=== PATIENT | female | born 1995 | race Caucasian/White ===

== ENCOUNTER 2022-02-22 08:40 | Emergency (ER) | payer OTHER, SELFPAY ==
--- NOTE | ~2022-02-22 | XR_ITS ---
XR chest 1V portable DATE: 02/22/2022 09:50 INDICATION: Chest pain, shortness of breath. Anxiety attack today. TECHNIQUE: Portable upright AP chest on 02/14/2022 at 0946 hours COMPARISON: None FINDINGS: Normal heart size. No hilar or mediastinal enlargement. No pulmonary infiltrate or consolid ation, pleural effusion or pulmonary vascular congestion or pneumothorax. There is thoracic and lumbar scoliosis. IMPRESSION: No active cardiopulmonary disease Reviewed, dictated and finalized at location B.
[2022-02-22 08:39] VITALS: BP 114/81; PULSE 82; RESP 21; TEMP 36.8; O2SAT 100
--- NOTE | 2022-02-22 08:46 | ECG_ITS ---
Measurements Intervals [place] Rate: 70 P: 49 GA: 115 QRS: 40 QRSD: 94 T: 53 QT: 402 QTc: 436 Interpretive Statements SINUS RHYTHM WITH SINUS ARRHYTHMIA WITH SHORT GA INTERVAL RIGHT VENTRICULAR CONDUCTION DELAY NO PREVIOUS ECG AVAILABLE FOR COMPARISON Electronically Signed On 02-22-2022 10:56:52 CDT by Sam Bolton M.D.
--- NOTE | 2022-02-22 08:54 | ED.ANXIETY ---
HPI - Anxiety General Chief Complaint: Anxiety <Rosalina Crain PA-C - Last Filed: 02/22/22 13:18> Stated Complaint: anxiety attack <Rosalina Crain PA-C - Last Filed: 02/22/22 13:18> Time Seen by Provider: 02/22/22 08:53 <Rosalina Crain PA-C - Last Filed: 02/22/22 13:18> History of Present Illness HPI narrative: Patient is a 26-year-old female with a history of anxiety and panic attacks here for evaluation of several symptoms which she attributes to panic attack earlier today. She states that she was going up a flight of stairs when she became short of breath, developed a tightness in the center of her chest, felt incredibly anxious, and felt like she was losing control. She states that this is her classic panic attack symptom. She is still is feeling some tightness in the center of her chest and also feels very anxious. She has seen a psychiatrist in the past for this but has not seen one in several years and is not currently on any medications. She did also have a panic attack about 2 months ago with very similar symptoms. Denies SI/HI, fevers, chills, preceding illness, leg swelling, history of blood clots, use of oral contraceptives, cough, hemoptysis, malaise, headaches. Of note, patient uses IV fentanyl, last used last week. <Rosalina Crain PA-C - Last Filed: 02/22/22 13:18> Related Data Allergies/Adverse Reactions: Allergies Allergy/AdvReac Type Severity Reaction Status Date / Time No Known Allergies Allergy Verified 02/22/22 08:45 <Rosalina Crain PA-C - Last Filed: 02/22/22 13:18> Review of Systems Review of Systems: Gen: Denies fevers or chills Eyes: Denies eye pain or visual change ENT: Denies congestion Respiratory: Reports shortness of breath. denies Cough CV: Reports chest pain and shortness of breath. GI: Denies abdominal pain nausea, emesis or diarrhea denies burning, urgency, frequency or hematuria Musculoskeletal: Denies back pain or muscle pain Neuro: Denies numbness, tingling, weakness or focal weakness Psych: Reports anxiety. Skin: Denies rash Except as documented, all other systems reviewed and negative <CHERRY Hudson Last Filed: 02/22/22 13:18> [facility] Social History Social History: Social History Substance use type: opiates <CHERRY Hudson Last Filed: 02/22/22 13:18> Exam Narrative: APPEARANCE: Tearful, anxious appearing. Head: Normocephalic and atraumatic. EYES: PERRLA/EOMI, conjunctivae clear NOSE: No nasal drainage EARS: External ear normal in appearance THROAT: Oropharynx is clear. Mucous membranes are moist. NECK: Supple. No adenopathy, no masses. RESPIRATORY: Airway patent, respirations nonlabored. Clear to auscultation bilaterally, no rales, rhonchi, wheezing. CARDIOVASCULAR: Regular rate and rhythm without murmurs, rubs, or gallops. ABDOMINAL: Normoactive bowel sounds. Soft, nontender, nondistended. No rebound tenderness or guarding. MUSCULOSKELETAL: Extremities are warm and well-perfused. Moves all extremities well. No edema. NEURO: Normal speech. No focal neurologic deficits. SKIN: Skin is warm and dry. No rashes. PSYCHIATRIC:Anxious mood. <CHERRY Hudson Last Filed: 02/22/22 13:18> Course Vital Signs Vital signs: Vital Signs Temperature 98.3 F 02/22/22 08:39 Pulse Rate 82 02/22/22 08:39 Respiratory Rate 21 H 02/22/22 08:39 Blood Pressure 114/81 02/22/22 08:39 Pulse Oximetry 100 02/22/22 08:39 Oxygen Delivery Room Air 02/22/22 08:39 Temperature 98.3 F 02/22/22 08:39 Pulse Rate 83 02/22/22 11:13 Respiratory Rate 20 02/22/22 11:13 Blood Pressure 116/72 02/22/22 11:13 Pulse Oximetry 100 02/22/22 11:13 Oxygen Delivery Room Air 02/22/22 08:39 <CHERRY Hudson Last Filed: 02/22/22 13:18> Vital Signs Temperature 98.3 F 02/22/22 08:39 Pulse Rate 82 02/22/22 08:39 Respirat
[2022-02-22] MEDS: LORazepam (*CRX) 0.5 MG TABLET PO ×2 (09:06→10:36)
[2022-02-22 09:16] LABS: Basophils Percent Auto 0.3 % (0.2-1.2); Eosinophils Percent Auto 0.2 % (0-4.4); Hematocrit 44.4 % (37.0-47.0); Hemoglobin 13.5 g/dL (12.0-15.0); Immature Granulocyte Absolute 0.02 K/mm3 (0.00-0.031); Immature Granulocyte Percent A 0.2 % (0-0.5); Lymphocytes Absolute Auto 1.72 K/mm3 (0.9-3.2); Lymphocytes Percent Auto 19.6 % (18.3-44.2); Mean Corpuscular HGB Conc 30.4 g/dl (32-36); Mean Corpuscular Volume 92.1 fl (80-100); Monocytes Absolute Auto 0.4 K/mm3 (0.1-0.6); Monocytes Percent Auto 4.8 % (2.6-8.5); Neutrophils Absolute Auto 6.6 K/mm3 (1.3-6.7); Neutrophils Percent Auto 74.9 % (45.5-73.1); Platelet Count Result 455 k/mm3 (150-375); Red Blood Count 4.82 M/mm3 (4.2-5.4); Red Cell Distribution Width 15.3 % (11.5-14.5); White Blood Count 8.8 K/mm3 (4.5-10.0)
[2022-02-22 09:19] LABS: Appearance Urine Cloudy (Clear); Bilirubin Urine 1+ (Negative); Color Urine Yellow (Yellow); Glucose Urine UA Negative (Negative); Ketones Urine Trace mg/dL (Negative); Leukocyte Esterase Ur 1+ LEU/UL (Negative); Nitrate Urine Negative (Negative); Protein Urine 1+ mg/dL (Negative)
[2022-02-22 09:20] LABS: Add Urine Microscopic? YES; Blood Urine Trace-Intact (Negative)
[2022-02-22 09:23] LABS: Bacteria Urine Trace /hpf; Mucus Urine Heavy /lpf; Squamous Epithelial Cell Urine Many /hpf (Few); WBC Urine 31-50 /hpf
[2022-02-22 09:33] LABS: Troponin I < 0.012 ng/mL (0.000-0.034)
[2022-02-22 09:38] LABS: Alanine Aminotransferase 29 U/L (6-35); Albumin Level 4.7 g/dL (3.5-5.1); Alkaline Phosphatase 95 U/L (38-126); Anion Gap 9 mmol/L (8-16); Aspartate Amino Transferase 32 U/L (14-36); Bilirubin,Total 0.7 mg/dL (0.2-1.3); Blood Urea Nitrogen 14 mg/dL (7-17); Calcium 9.1 mg/dL (8.4-10.2); Carbon Dioxide 24 mmol/L (22-30); Chloride 111 mmol/L (98-107); Estimated CRCL calculation 117 ml/min; Estimated Glomerular Filt Rate > 60; Glucose 98 mg/dL (65-110); Potassium 4.3 mmol/L (3.4-5.0); Sodium 144 mmol/L (137-145)
[2022-02-22 10:09] VITALS: BP 118/73; PULSE 68; RESP 15; O2SAT 98
[2022-02-22 10:24] LABS: Amphetamine Screen Urine Negative (Negative); Barbiturate Screen Urine Negative (Negative); Benzodiazepines Screen Urine Negative (Negative); Cannabinoid Screen Urine Positive (Negative); Cocaine Screen Urine Negative (Negative); Methadone Screen Urine Negative (Negative); Opiate Screen Urine Negative (Negative); Phencyclidine Screen Urine Negative (Negative)
[2022-02-22 11:13] VITALS: BP 116/72; PULSE 83; RESP 20; O2SAT 100
== END 2022-02-22 11:15 | disposition home or self-care (01) ==
PROVIDERS: Emergency Provider Emergency Medicine
DX: F41.9 Anxiety disorder, unspecified (principal); I45.9 Conduction disorder, unspecified
CPT/HCPCS: 36415; 71045; 80053; 80307; 81001; 81025; 84484; 85025; 87077; 87086; 87088; 87186; 93005; 99284; A9270

== ENCOUNTER 2022-04-28 14:18 | Emergency (ER) | payer OTHER, SELFPAY ==
--- NOTE | 2022-04-28 14:36 | PC.NURSE ---
called for triage. no response.
[2022-04-28 14:49] VITALS: BP 128/98; PULSE 105; RESP 16; TEMP 36.9; O2SAT 97
[2022-04-28 16:41] LABS: Appearance Urine Slightly Cloudy (Clear); Bilirubin Urine Negative (Negative); Blood Urine Negative (Negative); Color Urine Yellow (Yellow); Glucose Urine UA Negative (Negative); Ketones Urine Negative (Negative); Leukocyte Esterase Ur Trace LEU/UL (Negative); Nitrate Urine Negative (Negative); Protein Urine Negative (Negative); Specific Grav Ur 1.025 (1.001-1.035); Urobilinogen Urine 0.2 mg/dL (<2.0); pH Urine 6.5 (5.0-9.0)
[2022-04-28 16:41] LABS: Basophils Percent Auto 0.2 % (0.2-1.2); Eosinophils Absolute Auto 0.4 K/mm3 (0-0.3); Eosinophils Percent Auto 7.5 % (0-4.4); Hemoglobin 10.7 g/dL (12.0-15.0); Immature Granulocyte Absolute 0.01 K/mm3 (0.00-0.031); Immature Granulocyte Percent A 0.2 % (0-0.5); Lymphocytes Absolute Auto 1.72 K/mm3 (0.9-3.2); Lymphocytes Percent Auto 32.3 % (18.3-44.2); Mean Corpuscular HGB Conc 31.5 g/dl (32-36); Mean Corpuscular Hemoglobin 28.1 pg (26-34); Mean Corpuscular Volume 89.2 fl (80-100); Mean Platelet Volume 9.3 fl (7.4-10.4); Monocytes Absolute Auto 0.9 K/mm3 (0.1-0.6); Monocytes Percent Auto 16.7 % (2.6-8.5); Neutrophils Absolute Auto 2.3 K/mm3 (1.3-6.7); Neutrophils Percent Auto 43.1 % (45.5-73.1); Platelet Count Result 274 k/mm3 (150-375); Red Blood Count 3.81 M/mm3 (4.2-5.4); White Blood Count 5.3 K/mm3 (4.5-10.0)
[2022-04-28 16:44] LABS: Bacteria Urine Trace /hpf; Calcium Oxalate Crystals Urine Present /hpf; Mucus Urine Few /lpf; Squamous Epithelial Cell Urine Many /hpf (Few); WBC Urine 0-3 /hpf
[2022-04-28 16:47] LABS: Add Urine Microscopic? YES
[2022-04-28 16:52] LABS: Alanine Aminotransferase 91 U/L (6-35); Alkaline Phosphatase 98 U/L (38-126); Anion Gap 3 mmol/L (8-16); Aspartate Amino Transferase 95 U/L (14-36); Bilirubin,Total 0.2 mg/dL (0.2-1.3); Blood Urea Nitrogen 12 mg/dL (7-17); Calcium 8.6 mg/dL (8.4-10.2); Carbon Dioxide 27 mmol/L (22-30); Chloride 102 mmol/L (98-107); Estimated CRCL calculation 117 ml/min; Estimated Glomerular Filt Rate > 60; Glucose 88 mg/dL (65-110); Potassium 3.9 mmol/L (3.4-5.0); Sodium 132 mmol/L (137-145)
--- NOTE | 2022-04-28 18:46 | ED.ABDPAIN ---
HPI - Abdominal Pain General Chief Complaint: Abdominal Pain <Rosalina Mora PA-C - Last Filed: 04/28/22 22:16> Stated Complaint: blood in urine, flank pain <Rosalina Mora PA-C - Last Filed: 04/28/22 22:16> Time Seen by Provider: 04/28/22 18:35 <Rosalina Mora PA-C - Last Filed: 04/28/22 22:16> Source: patient <Rosalina Mora PA-C - Last Filed: 04/28/22 22:16> Mode of arrival: ambulatory <Rosalina Mora PA-C - Last Filed: 04/28/22 22:16> Limitations: no limitations <Rosalina Mora PA-C - Last Filed: 04/28/22 22:16> History of Present Illness HPI narrative: This is a 26 year old female that presents to the ER for urinary problems. Reports she has had several different antibiotics over the last couple of months for a UTI. Reports continued vulvovaginal irritation. Also reports she saw some blood in her urine. Reports she would like tested for STDs. Denies fever, abdominal pain, or dysuria. <Rosalina Mora PA-C - Last Filed: 04/28/22 22:16> Related Data Allergies/Adverse Reactions: Allergies Allergy/AdvReac Type Severity Reaction Status Date / Time ketorolac AdvReac Mild SWELLING Verified 02/06/18 17:11 <Rosalina Mora PA-C - Last Filed: 04/28/22 22:16> Review of Systems Review of Systems: CONSTITUTIONAL: Denies fever GASTROINTESTINAL: Denies abdominal pain, nausea, vomiting GENITOURINARY: Reports hematuria. Denies dysuria <Rosalina Mora PA-C - Last Filed: 04/28/22 22:16> All systems reviewed & are unremarkable except as noted in HPI and below <Rosalina Mora PA-C - Last Filed: 04/28/22 22:16> [facility] Past Medical History Medical History: Medical History (Updated 04/28/22 @ 22:11 by Rosalina Mora PA-C) History of anxiety <Rosalina Mora PA-C - Last Filed: 04/28/22 22:16> Social History Social History: Social History (Updated 04/28/22 @ 18:59 by Rosalina Mora PA-C) Smoking status: Never smoker <Rosalina Mora PA-C - Last Filed: 04/28/22 22:16> Exam Narrative: GENERAL: Well-appearing, well-nourished, and in no acute distress. HEAD: Normocephalic, atraumatic. EYES: EOMI. CHEST: Clear to auscultation. No respiratory distress. No wheezes rales or rhonchi HEART: Regular rate and rhythm. No murmur heard. Normal peripheral pulses. ABDOMEN: Soft, nontender, nondistended, normal active bowel sounds. No CVA tenderness EXTREMITIES: Normal range of motion. No edema. SKIN: Warm, dry, no rash. NEURO: No focal deficits. Alert and oriented x3. PSYCH: Normal mood and affect PELVIC: Mild vulvovaginal irritation with white discharge present. Normal appearing cervix. No bleeding. Moderate amount of white discharge present in the vaginal vault <Rosalina Mora PA-C - Last Filed: 04/28/22 22:16> Course BOMB LOADER/PA Physician Supervision For this patient encounter, I reviewed the BOMB LOADER or PA documentation, treatment plan, and medical decision making <Micky Ortiz MD - Last Filed: 04/28/22 22:28> Vital Signs Vital signs: Vital Signs Temperature 98.4 F 04/28/22 14:49 Pulse Rate 105 H 04/28/22 14:49 Respiratory Rate 16 04/28/22 14:49 Blood Pressure 128/98 H 04/28/22 14:49 Pulse Oximetry 97 04/28/22 14:49 Oxygen Delivery Room Air 04/28/22 14:49 Temperature 98.4 F 04/28/22 14:49 Pulse Rate 105 H 04/28/22 14:49 Respiratory Rate 16 04/28/22 14:49 Blood Pressure 128/98 H 04/28/22 14:49 Pulse Oximetry 97 04/28/22 14:49 Oxygen Delivery Room Air 04/28/22 14:49 <Rosalina Mora PA-C - Last Filed: 04/28/22 22:16> Vital Signs Temperature 98.4 F 04/28/22 14:49 Pulse Rate 105 H 04/28/22 14:49 Respiratory Rate 16 04/28/22 14:49 Blood Pressure 128/98 H 04/28/22 14:49 Pulse Oximetry 97 04/28/22 14:49 Oxygen Delivery Room Air 04/28/22 14:49 Temperature 98.4 F 04/28/22 14:49 Pulse Rate 105 H 04/28/22 14:49 Respiratory Rate 16 04/28/22 14:49 Blood Pressure
[2022-04-28 20:17] LABS: Beta HCG Quantitative 326.94 mIU/ML
--- NOTE | 2022-04-28 21:00 | PC.NURSE ---
attempted to call lab to 4 times in previous hour with no answer. Call received at 21:00 to add on HIV 1 & 2. HIV 1&2 was originally added on by myrtle lang at 19:34, but was never received by lab.
[2022-04-28 22:25] LABS: HIV 1/2 Ab P24 Ag Result Negative (Negative)
[2022-04-28 22:52] VITALS: BP 130/88; PULSE 86; RESP 16; O2SAT 98
== END 2022-04-28 22:52 | disposition home or self-care (01) ==
PROVIDERS: Emergency Medicine; Physician Assistant; Emergency Provider Emergency Medicine
DX: O98.811 Other maternal infectious and parasitic diseases complicating pregnancy, first trimester (principal); B37.3 Candidiasis of vulva and vagina; Z11.3 Encounter for screening for infections with a predominantly sexual mode of transmission; Z3A.00 Weeks of gestation of pregnancy not specified
CPT/HCPCS: 36415; 80053; 81001; 81025; 84702; 85025; 86703; 87070; 87491; 87591; 87808; 99284; G0432

== ENCOUNTER 2022-09-20 20:24 | Emergency (ER) | payer OTHER, SELFPAY ==
--- NOTE | 2022-09-20 20:27 | PC.NURSE ---
before triage, patient took a phone call and states she needed to leave to pickler helper her daughter and she will be back
== END 2022-09-20 20:55 | disposition left against medical advice (07) ==
DX: Z53.21 Procedure and treatment not carried out due to patient leaving prior to being seen by health care provider (principal)
CPT/HCPCS: 99199

== ENCOUNTER 2023-01-28 17:46 | Emergency (ER) | payer OTHER, MEDICAID, SELFPAY ==
[2023-01-28 17:50] VITALS: BP 103/61; PULSE 95; RESP 16; TEMP 36.8; O2SAT 100
--- NOTE | 2023-01-28 18:29 | ED.OVERDOSE ---
HPI - Overdose General Chief Complaint: Overdose Stated Complaint: OVERDOSE Time Seen by Provider: 01/28/23 18:16 History of Present Illness HPI Narrative: Patient is a 27-year-old female presenting after overdose. Patient states that she has been on Xanax for the last 7 months due to anxiety and panic attacks. States that she took 1 earlier today and then she was around the wrong people . States that she had needles in her purse and she may have done some fentanyl. According to EMS, she was found unresponsive with a needle in her arm in a [facility] bathroom. Reportedly got out of rehab within the last few weeks. Currently, patient is somewhat somnolent but able to hold a conversation. States that she is concerned that the faith doctor took her Xanax. States that she has been recently treated for a UTI and she is concerned that she might still have one. She denies any pain. No recent fevers. No numbness or weakness. Denies further complaints. Related Data Allergies Allergy/AdvReac Type Severity Reaction Status Date / Time ketorolac AdvReac Mild SWELLING Verified 04/29/22 15:11 Review of Systems Review of Systems: All systems reviewed & are unremarkable except as noted in HPI and below PMFSH Past Medical History Medical History (Updated 01/29/23 @ 00:00 by Background Daemon) History of anxiety Social History Social History Smoking status: Never smoker Substance use type: opiates Exam Narrative: GENERAL: Somnolent but easily awakens to verbal stimuli, responding appropriately, pleasant and cooperative HEAD: Normocephalic, atraumatic. EYES: PERRLA and EOMI. ENT: Nares clear, no rhinorrhea or epistaxis. Mucous membranes moist. NECK: Supple. CHEST: Clear to auscultation. No respiratory distress. HEART: Regular rate and rhythm ABDOMEN: Soft, nontender, nondistended EXTREMITIES: Normal range of motion. No edema. SKIN: Warm, dry, no rash. NEURO: No focal deficits. Alert and oriented x3. PSYCH: Normal mood and affect. Course Vital Signs Vital signs: Vital Signs Temperature 98.3 F 01/28/23 17:50 Pulse Rate 95 01/28/23 17:50 Respiratory Rate 16 01/28/23 17:50 Blood Pressure 103/61 01/28/23 17:50 Pulse Oximetry 100 01/28/23 17:50 Temperature 98.3 F 01/28/23 17:50 Pulse Rate 71 01/28/23 18:59 Respiratory Rate 15 01/28/23 18:59 Blood Pressure 105/71 01/28/23 18:59 Pulse Oximetry 100 01/28/23 18:59 MDM - Overdose MDM Narrative Medical decision making narrative: Patient is a 27-year-old female presenting after possible overdose. Vitals within normal limits. Exam remarkable for the above. She is saturating 100% on room air. She is somnolent but she easily awakens to verbal stimuli. She is able to hold a conversation is responding appropriately. After several hours of observation, the patient's mental status has significantly improved. She is now awake and alert and responding appropriately. She states that she needs a prescription for Xanax as the police took away her bottle because she pulled off the sticker. States that she has been on benzodiazepines for at least the last 7 months. We will provide 3 days worth of Xanax to hold her over until she can follow-up with her prescribing provider. Patient is agreeable with this plan. Discharged in stable condition. Differential Diagnosis Differential diagnosis: Likely drug overdose Medical Records Attestation: I reviewed the patient's medical records. Critical Care Time Critical Care Time Critical Care Time: No Discharge Plan Discharge Clinical Impression: Drug overdose Patient Disposition: Home, Self-Care Condition: Stable Instructions: Antibiotic Form, Adult Overdose (ED) Additional Instructions: Please do not use opiates or other illicit drugs. Please follow-up closely with the physician who prescribes your xanax. Also follow-up with your
[2023-01-28 18:49] VITALS: RESP 12
[2023-01-28 18:59] VITALS: BP 105/71; PULSE 71; RESP 15; O2SAT 100
--- NOTE | 2023-01-28 19:30 | PC.NURSE ---
This RN assumed care of patient.
== END 2023-01-28 22:37 | disposition home or self-care (01) ==
PROVIDERS: Emergency Provider Emergency Medicine
DX: T40.411A Poisoning by fentanyl or fentanyl analogs, accidental (unintentional), initial encounter (principal); F41.9 Anxiety disorder, unspecified
CPT/HCPCS: 99283

== ENCOUNTER 2023-03-27 15:27 | Emergency (ER) | payer OTHER, MEDICAID, SELFPAY ==
--- NOTE | ~2023-03-27 | CT_ITS ---
EXAMINATION: CT abdomen pelvis w con DATE: 03/27/2023 20:47 INDICATION: bilateral flank pain, Hx stones, Hx UTI TECHNIQUE: Computed tomography (CT) of the abdomen and pelvis was performed with 100 mL Omnipaque-350 intravenous contrast. Automated exposure control and iterative reconstruction technique were employe d. The dose-length product was 252.78 mGy-cm. COMPARISON: None. FINDINGS: Lower thorax: Unremarkable Liver: Subcentimeter right lobe hypodensity, likely cyst or hemangioma, but too small to characterize . Biliary/Gallbladder: Gallbladder is normal. No bile duct dilation. Pancreas: No mass or duct dilation. Spleen: Normal. Adrenals:No mass. Kidneys: Tiny left lower pole and mid pole hypodensities, too small to characterize but most likely r epresent cysts. No suspicious mass, stone, or hydronephrosis. GI tract: No small or large bowel dilation. Normal appendix. Mesentery/Peritoneum: No ascites, mass, or free air. Retroperitoneum: No mass. Pelvis: Mild bladder wall thickening in a partially distended urinary bladder, the remaining pelvic o rgans are within normal limits. Soft Tissues: Soft tissues and body wall unremarkable. Bones: No acute osseous finding. IMPRESSION: Bladder wall thickening secondary to cystitis or incomplete bladder distention. Otherwise, no acute abdominopelvic process detected. Reviewed, dictated and finalized at location K.
[2023-03-27 16:06] VITALS: BP 139/91; PULSE 18; RESP 18; TEMP 36.7; O2SAT 100
--- NOTE | 2023-03-27 18:07 | ED.FEMALEGU ---
HPI - Female Genitourinary General Chief complaint: Urogenital-Female Stated complaint: right flank pain Time Seen by Provider: 03/27/23 17:47 Source: patient Mode of arrival: ambulatory Limitations: no limitations History of Present Illness HPI Narrative: This is a 27-year-old female who presents to the ED with chief complaint of bilateral flank pain, right greater than left onset this afternoon. Patient states that she was recently diagnosed with a UTI by her primary care doctor and is on day 4 of her Keflex. She states she has been told last year that she had multiple kidney stones in her right kidney but has had a left ureteral stone in the past. She feels like this pain today is very similar. She states occasionally radiates into the abdomen and groin area. Endorses some urinary frequency but denies hematuria. Denies fevers, chills, nausea, vomiting. Related Data Allergies Allergy/AdvReac Type Severity Reaction Status Date / Time shellfish derived Allergy Swelling Verified 03/27/23 19:02 ketorolac AdvReac Mild SWELLING Verified 03/27/23 19:02 [facility] Past Medical History Medical History (Updated 03/28/23 @ 00:00 by Johnathon Leija) History of anxiety Social History Social History Smoking status: Never smoker Substance use type: opiates Exam Narrative: GENERAL: Appears in pain. Conversational. HEAD: Normocephalic, atraumatic. EYES: PERRLA and EOMI. ENT: Nares clear, no rhinorrhea or epistaxis. Mucous membranes moist. Oropharynx without tonsillar hypertrophy exudate or other lesions. NECK: Supple. No adenopathy or masses. CHEST: No respiratory distress. Clear to auscultation. No wheezes rales or rhonchi HEART: Regular rate and rhythm. No murmur heard. Normal peripheral pulses. ABDOMEN: Negative tenderness bilaterally. Mild suprapubic tenderness. Soft, otherwise nontender, nondistended, normal active bowel sounds. MSK: Normal range of motion. No edema. SKIN: Warm, dry, no rash. NEURO: Alert and oriented x3. No focal deficits. PSYCH: Normal mood and affect. Course Vital Signs Vital signs: Vital Signs Temperature 98.1 F 03/27/23 16:06 Pulse Rate 18 L 03/27/23 16:06 Respiratory Rate 18 07/31/23 16:06 Blood Pressure 139/91 H 03/27/23 16:06 Pulse Oximetry 100 03/27/23 16:06 Oxygen Delivery Room Air 03/27/23 16:06 Temperature 98.1 F 03/27/23 16:06 Pulse Rate 88 03/27/23 21:44 Respiratory Rate 15 03/27/23 21:44 Blood Pressure 123/77 03/27/23 21:44 Pulse Oximetry 100 03/27/23 21:44 Oxygen Delivery Room Air 03/27/23 16:06 MDM - Female Genitourinary MDM Narrative Medical decision making narrative: This is a 27-year-old female who presents to the ED with chief complaint of lower abdominal pain and lower back pain for the past couple of days. Vitals are normal. Exam shows mild suprapubic tenderness. CBC and CMP are unremarkable. UA reveals evidence of infection. CT scan was ordered to rule out kidney stone versus pyelonephritis or other complicated UTI. CT scan shows Bladder wall thickening secondary to cystitis or incomplete bladder distention. No other acute findings noted. She improved greatly clinically with fluids, Dilaudid, Zofran. She will be discharged in stable condition for UTI. She is already taking Keflex and I instructed her to continue this through its full course. Expect this to get better over the next few days. Supportive measures for home discussed and return precautions were given. Patient is understanding and agreeable with the plan for discharge and follow-up with her PCP. Lab Data 03/27/23 17:58 03/27/23 17:58 Labs: Lab Results 03/27/23 03/27/23 Range/Units 17:58 18:02 WBC 10.6 H (4.5-10.0) K/mm3 RBC 4.74 (4.2-5.4) M/mm3 Hgb 13.6 (12.0-15.0) g/dL Hct 42.6 (37.0-47.0) % MCV 89.9 (80-100) fl MCH 28.7 (26-34)
[2023-03-27 18:09] LABS: Basophils Percent Auto 0.1 % (0.2-1.2); Eosinophils Percent Auto 0.1 % (0-4.4); Hematocrit 42.6 % (37.0-47.0); Hemoglobin 13.6 g/dL (12.0-15.0); Immature Granulocyte Absolute 0.02 K/mm3 (0.00-0.031); Immature Granulocyte Percent A 0.2 % (0-0.5); Lymphocytes Percent Auto 5.6 % (18.3-44.2); Mean Corpuscular HGB Conc 31.9 g/dl (32-36); Mean Corpuscular Hemoglobin 28.7 pg (26-34); Mean Corpuscular Volume 89.9 fl (80-100); Mean Platelet Volume 9.4 fl (7.4-10.4); Monocytes Absolute Auto 0.1 K/mm3 (0.1-0.6); Monocytes Percent Auto 0.9 % (2.6-8.5); Neutrophils Absolute Auto 9.9 K/mm3 (1.3-6.7); Neutrophils Percent Auto 93.1 % (45.5-73.1); Platelet Count Result 329 k/mm3 (150-375); Red Blood Count 4.74 M/mm3 (4.2-5.4); Red Cell Distribution Width 14.7 % (11.5-14.5); White Blood Count 10.6 K/mm3 (4.5-10.0)
[2023-03-27 18:14] LABS: Appearance Urine Cloudy (Clear); Bacteria Urine 2+ /hpf; Bilirubin Urine Negative (Negative); Blood Urine Negative (Negative); Color Urine Yellow (Yellow); Glucose Urine UA Negative (Negative); Ketones Urine Negative (Negative); Leukocyte Esterase Ur 1+ LEU/UL (Negative); Nitrate Urine Negative (Negative); Protein Urine Negative (Negative); RBC Urine 0-2 /hpf (0-2); Specific Grav Ur 1.022 (1.001-1.035); Squamous Epithelial Cell Urine Moderate /hpf (Few); pH Urine 7.5 (5.0-9.0)
[2023-03-27 18:18] LABS: Add Urine Microscopic? YES
[2023-03-27 18:21] LABS: Alanine Aminotransferase 33 U/L (6-35); Alkaline Phosphatase 91 U/L (38-126); Anion Gap 13 mmol/L (8-16); Aspartate Amino Transferase 29 U/L (14-36); Bilirubin,Total 0.8 mg/dL (0.2-1.3); Blood Urea Nitrogen 12 mg/dL (7-17); Calcium 9.8 mg/dL (8.4-10.2); Carbon Dioxide 23 mmol/L (22-30); Chloride 106 mmol/L (98-107); Estimated CRCL calculation 116 ml/min; Estimated Glomerular Filt Rate > 60; Glucose 102 mg/dL (65-110); Potassium 4.1 mmol/L (3.4-5.0); Sodium 142 mmol/L (137-145)
[2023-03-27 19:40] LABS: Pregnancy On Board Control Positive; Urine Pregnancy Test Negative
[2023-03-27] MEDS: SODIUM CHLORIDE 0.9% IV 1,000 ML 999 ML IV CONT (19:56)
[2023-03-27] MEDS: ONDANSETRON INJ 4 MG/2 ML VIAL IV PUSH (19:56)
[2023-03-27] MEDS: HYDROmorphone HCL INJ (*CRX) 1 MG/ML SYR 0.5 MG IV PUSH (20:42)
[2023-03-27 21:44] VITALS: BP 123/77; PULSE 88; RESP 15; O2SAT 100
== END 2023-03-27 21:47 | disposition home or self-care (01) ==
PROVIDERS: Emergency Medicine; Emergency Provider Physician Assistant
DX: N39.0 Urinary tract infection, site not specified (principal); F41.9 Anxiety disorder, unspecified; Z87.442 Personal history of urinary calculi
CPT/HCPCS: 36415; 74177; 80053; 81001; 81025; 85025; 87086; 96361; 96365; 96375; 99284; J0696; J1170; J2405; J7030; Q9967

== ENCOUNTER 2023-06-01 15:09 | Outpatient (CLI) | payer OTHER, MEDICAID, SELFPAY ==
[2023-06-01 16:49] LABS: Beta HCG Quantitative < 2.39 mIU/ML
[2023-06-05 09:27] LABS: Prolactin 23.1 ng/mL (***)
== END 2023-06-01 15:10 | disposition home or self-care (01) ==
LOC: ANHLAB 15:14
PROVIDERS: Visit Provider Obstetrics & Gynecology
DX: Z20.2 Contact with and (suspected) exposure to infections with a predominantly sexual mode of transmission (principal); N64.3 Galactorrhea not associated with childbirth
CPT/HCPCS: 36415; 84146; 84443; 84702; 86695; 86696

== ENCOUNTER 2024-06-26 12:41 | Outpatient (CLI) | payer OTHER, MEDICAID, SELFPAY ==
--- NOTE | ~2024-06-26 | MMUS_ITS ---
EXAMINATION: MM diagnostic laith BI w malina, US breast BI limited HISTORY: Mastodynia, milky discharge TECHNIQUE: 3-D tomosynthesis images of the breasts were performed and synthetic 2-D images were gener ated. CAD analysis was submitted and interpreted. High resolution limited bilateral breast ultrasound was performed. COMPARISON: None BREAST PARENCHYMAL COMPOSITION:Dense: The breasts are extremely dense, which lowers the sensitivity o f mammography. FINDINGS: MAMMOGRAPHIC FINDINGS: Parenchymal pattern of the breasts is unremarkable. No mass lesion or distortion seen. No suspicious microcalcification. ULTRASOUND: At the 2:00 position left breast, 4 cm from the nipple, there is an 8 x 4 x 6 mm hypoechoic mass, wid er than tall, mildly lobulated. At the 1:00 position left breast, 3 cm nipple, an area of bruising, t here is a hypoechoic elongated wider than tall area superficially located in the dermis. IMPRESSION: 8 x 4 x 6 mm hypoechoic mass at the 2:00 position left breast, 4 cm in the interval, probably benign . Additional probable benign hypoechoic area at the 1:00 position left breast, 3 cm from the nipple, likely in the dermis. Six-month follow-up ultrasound recommended to reassess these findings. BI-RADS category 3, probably benign findings. Reviewed, dictated and finalized at location M. IMPRESSION: 8 x 4 x 6 mm hypoechoic mass at the 2:00 position left breast, 4 cm in the int erval, probably benign. Additional probable benign hypoechoic area at the 1:00 position left breast, 3 cm from the nipple, likely in the dermis. Six-month fol low-up ultrasound recommended to reassess these findings. BI-RADS category 3, probably benign findings.
== END 2024-06-26 12:42 | disposition home or self-care (01) ==
LOC: ANHIMG 12:43
PROVIDERS: Visit Provider Obstetrics & Gynecology
DX: N64.3 Galactorrhea not associated with childbirth (principal); R92.8 Other abnormal and inconclusive findings on diagnostic imaging of breast
CPT/HCPCS: 76642; 77062; 77066; G0279

== ENCOUNTER 2024-12-27 12:50 | Outpatient (CLI) | payer OTHER, SELFPAY ==
--- NOTE | ~2024-12-27 | US_ITS ---
US breast LT limited 12/27/2024 13:29 Indication: Follow-up left breast masses Procedure: High-resolution Limited ultrasound of the left breast Comparison: Ultrasound and mammogram dated 06/26/2024 Findings: Oval superficial hypoechoic mass of the left breast at 2:00, 4 cm from the nipple measures 7 x 4 x 3 mm compared with 8 x 6 x 4 mm on previous examination. There is posterior acoustic enhancem ent with marginal vascularity, likely benign. The mass identified on o'clock, 3 cm from the nipple on prior examination is not visualized on current study, most likely representing interval resolution o f hematoma. Impression: 1: Slightly decreased size of benign-appearing left breast mass at 2:00, 4 cm from the nipple. BI-RADS CATEGORY 3-PROBABLY BENIGN FINDING RECOMMENDATION: Six-month interval Limited left breast ultrasound and bilateral diagnostic mammogram recommended. Reviewed, dictated and finalized at location A. Impression: 1: Slightly decreased size of benign-appearing left breast mass at 2:00, 4 cm f rom the nipple. BI-RADS CATEGORY 3-PROBABLY BENIGN FINDING RECOMMENDATION: Six-month interval Limited left breast ultrasound and bilateral diagnostic mammogram recommended.
--- OUTSIDE RECORDS SUMMARY | 2024-12-28 13:32 | XMS_ITS | Data Portability ---
Author Organization [employer] , [facility] Address [address] [place] [address] Assessment No assessment recorded. Plan of Treatment Reminders Order Date Submit Date Provider Last Modified By Organization Details Last Modified Time Details Appointments None recorded. Lab urinalysis, dipstick 2022 023 [email or web address] [facility], [address] [place], [address], 3 05:30:35 culture, urine 2022 023 [email or web address], [address] [place], [address], 3 05:30:35 bacterial vaginosis + vaginitis panel, vaginal 2022 023 [employer] [facility], [address] [place] [address], [address], 3 12:20:12 culture, urine 2022 023 [employer] [facility], [address] [place], [address], 3 00:00:21 urinalysis, dipstick 2022 023 [email or web address] [facility], [address] [place], [address], 3 18:02:18 bacterial vaginosis + vaginitis panel, vaginal 2022 023 [facility], [address] [place], [address], 3 17:33:18 urinalysis, dipstick 2022 023 [email or web address] [facility], [address] [facility], [place], [address], 3 12:05:31 culture, urine 2022 023 [employer] [facility], [address] [place], [address], 3 00:25:02 test, urine 2022 023 [email or web address] [facility], [address] [facility], [place], [address], 3 12:05:31 bacterial vaginosis + vaginitis panel, vaginal 2021 022 [facility], [address] [place], [address], 3 03:39:06 TSH + free T4, serum 2021 022 [employer] [facility], [address] [place], [address], 2 06:39:04 prolactin, serum 2021 022 [employer] [facility], [address] [place], [address], 2 06:39:04 Referral None recorded. Procedures None recorded. Surgeries None recorded. Imaging US, transvagina l 2021 022 [email or web address] 0 [facility], [address] [facility], [place], [address], 21:33:58 US, transvagina l 2021 022 [email or web address] Not available 11:40:27 Medication Orders doxycycline hyclate 100 mg tablet 2022 023 [facility], [address], [place], [place], [id number], 3 17:33:04 fosfomycin tromethamin e 3 gram oral packet 2022 023 [address], [address] [facility], [place], [place], [id number], 3 14:09:29 fosfomycin tromethamin e 3 gram oral packet 2022 023 [place] [address] [employer]12722, [address] [facility], [place], [place], [id number], 3 14:09:29 Flagyl 500 mg tablet 2022 023 [address]16336, [address] [facility], [place], [place], [id number], 3 14:09:32 Depo-Lab Technician a 150 mg/mL intramuscul ar suspension 2022 023 [email or web address] [id number], [address], [place], [place], [id number], 3 12:55:53 Patient TargetsNo targets recorded. Patient InstructionsNo instructions recorded. Reason for Referral None Reported. Results Created Date Observation Date Name Description Value Unit Range Abnormal Flag Note LastModifiedBy Organization Detail LastModifiedTime 04/20/20 22 04/21/2022 PROLA CTIN prolactin 7.8 NG/mL normal Refer ence Range Femal es Non-p regna nt 3.0-3 0.0 Pregn ant 10.0- 209.0 Postm enopa usal 2.0-2 0.0 Not Available [employer] [address], [address], 04/21/2022 06:39:04 04/20/20 22 04/21/2022 TSH+F REE T4 TSH 2.81 mIU/L normal Refer ence Range > or = 20 Years 0.40- 4.50 Pregn colleen Range s First trime ster 0.26- 2.66 Secon d trime ster 0.55- 2.73 Third trime ster 0.43- 2.91 Not Available [employer] [address], [address], 04/21/2022 06:39:04 04/20/20 22 04/21/2022 TSH+F REE T4 T4, free 1.1 NG/dL 0.8-1. 8 normal Not Available [employer] [address], [address], 04/21/2022 06:39:04 04/20/20 22 04/22/2022 VAGIN ITIS PLUS STD PANEL bacterial vaginosis BV neg negati ve normal Not Available [facility] [address], [address], 04/22/2022 11:14:50 04/20/20 22 04/22/2022 VAGIN ITIS PLUS STD PANEL franklin species C. spp POS negati ve abnormal Not Available [employer] [facility] [address] [place], [address], 04/22/2022 11:14:50 04/20/20 22 04/22/2022 VAGIN ITIS PLUS STD PANEL franklin glabrata C. gla POS negati ve abnormal Not Available [facility] [address] [place] [address], [address], 04/22/2022 11:14:50 04/20/20 22 04/22/2022 VAGIN ITIS PLUS STD PANEL trichomonas vaginalis CV/TV TRICH neg negati ve normal Not Available [facility] [address] [place], [address], 04/22/2022 11:14:50 04/20/20 22 04/22/2022 VAGIN ITIS PLUS STD PANEL chlamydia trachomatis CT neg negati ve normal This repor t is inten ded for us in clini tiffany monit oring and manag ement of [facility] nts. It is not inten ded for use in medic al-le gal appli catio n. Not Available [address], [address], 04/22/2022 11:14:50 04/20/20 22 04/22/2022 VAGIN ITIS PLUS STD PANEL neisseria gonorrhoeae GC neg negati ve normal This repor t is inten ded for us in clini tiffany monit oring and manag ement of patie nts. It is not inten ded for use in medic al-le gal appli catio n. Not Available [address], [address], 04/22/2022 11:14:50 12/29/19 23 12/29/2022 VAGIN ITIS PLUS STD PANEL bacterial vaginosis BV neg negati ve normal Not Available [address], [address], 12/29/2022 17:33:18 12/29/19 23 12/29/2022 VAGIN ITIS PLUS STD PANEL franklin species C. spp neg negati ve normal Not Available [address], [address], 12/29/2022 17:33:18 12/29/19 23 12/29/2022 VAGIN ITIS PLUS STD PANEL franklin glabrata C. gla neg negati ve normal Not Available [facility] [address] [place], [address], 12/29/2022 17:33:18 12/29/19 23 12/29/2022 VAGIN ITIS PLUS STD PANEL trichomonas vaginalis CV/TV TRICH neg negati ve normal Not Available [place] [facility] [address] [place], [address], 12/29/2022 17:33:18 12/29/19 23 12/29/2022 VAGIN ITIS PLUS STD PANEL chlamydia trachomatis CT neg negati ve normal This repor t is inten ded for us in clini tiffany monit oring and manag ement of [facility] n[facility]. It is not inten ded for use in medic al-le gal appli catio n. Not Available [address], [address], 12/29/2022 17:33:18 12/29/19 23 12/29/2022 VAGIN ITIS PLUS STD PANEL neisseria gonorrhoeae GC neg negati ve normal This repor t is inten ded for us in clini tiffany monit oring and manag [facility] n[facility]. It is not inten ded for use in medic al-le gal appli catio n. Not Available [address], [address], 12/29/2022 17:33:18 12/29/19 23 12/29/2022 CULTU RE, URINE , ROUTI NE culture, urine, routine SEE NOTE CULTU RE, URINE , ROUTI NE Micro Numbe r: [id number] Test Statu s: Final Speci men Sourc e: Urine , clean catch Speci men Quali ty: Adequ ate Resul t: No Growt h Not Available [employer] [facility] [address] [place], [address], 12/30/2022 00:25:02 12/29/19 23 12/28/2022 pregn colleen test, urine HCG negati ve Not Available [address], [address], 12/28/2022 12:51:33 12/29/19 23 12/28/2022 urina lysis , dipst ick Leukocytes Small Not Available [address] [place], [address], 12/28/2022 12:59:13 12/29/19 23 12/28/2022 urina lysis , dipst ick Nitrite negati ve Not Available [address], [place], [address], 12/28/2022 12:59:13 12/29/1912/28/2022 urina lysis , dipst ick Urobilinogen .2 Not Available [address], [place], [address], 12/28/2022 12:59:13 12/29/1912/28/2022 urina lysis , dipst ick Protein Negati ve Not Available [address], [place], [address], 12/28/2022 12:59:13 12/29/19 23 12/28/2022 urina lysis , dipst ick pH 8.0 Not Available [address], [place], [address], 12/28/2022 12:59:13 12/29/19 23 12/28/2022 urina lysis , dipst ick Blood Modera te Not Available [address], [place], [address], 12/28/2022 12:59:13 12/29/1912/28/2022 urina lysis , dipst ick Specific Evening Shade 1.020 Not Available [facility] [address], [place], [address], 12/28/2022 12:59:13 12/29/19 23 12/28/2022 urina lysis , dipst ick Ketone Large Not Available [address], [place], [address], 12/28/2022 12:59:13 12/29/19 23 12/28/2022 urina lysis , dipst ick Bilirubin Negati ve Not Available [address], [address], 12/28/2022 12:59:13 12/29/19 23 12/28/2022 urina lysis , dipst ick Glucose Negati ve Not Available [address], [address], 12/28/2022 12:59:13 12/29/19 23 12/28/2022 urina lysis , dipst ick Appearance Slight ly Cloudy Not Available [address], [address], 12/28/2022 12:59:13 12/29/19 23 12/28/2022 urina lysis , dipst ick Color Dark Yellow Not Available [address], [address], 12/28/2022 12:59:13 01/20/20 23 01/21/2023 CULTU RE, URINE , ROUTI NE culture, urine, routine SEE NOTE abnormal CULTU RE, URINE , ROUTI NE Micro Numbe r: [id number] Test Statu s: Final Speci men Sourc e: Urine Speci men Quali ty: Adequ ate Resul t: Great er than 100,0 00 CFU/m L of Enter ococc us speci es Enter ococc us sp. ----- ----- ----- - INT FUNMI AMPIC ILLIN S <=2 NITRO FURAN TOIN S <=16 VANCO MYCIN S 2 S=Amparo cepti ble I=Int ermed iate R=Res istan t * = Not Teste d NR = Not Repor kleber NN = See Thera py Comme nts Not Available [facility] [address] [facility] [place], [address], 01/21/2023 14:00:10 01/20/2001/19/2023 urina lysis , dipst ick Leukocytes Small Not Available [place] [address], [place], [address], 01/19/2023 13:10:14 01/20/20 23 01/19/2023 urina lysis , dipst ick Nitrite negati ve Not Available [place] [address], [place], [address], 01/19/2023 13:10:14 01/20/20 23 01/19/2023 urina lysis , dipst ick Urobilinogen .2 Not Available [address], [place], [address], 01/19/2023 13:10:14 01/20/20 23 01/19/2023 urina lysis , dipst ick Protein Trace Not Available [address], [place], [address], 01/19/2023 13:10:14 01/20/20 23 01/19/2023 urina lysis , dipst ick pH 6.0 Not Available [address], [place], [address], 01/19/2023 13:10:14 01/20/2001/19/2023 urina lysis , dipst ick Blood Modera te Not Available [place] [address], [place], [address], 01/19/2023 13:10:14 01/20/20 23 01/19/2023 urina lysis , dipst ick Specific [place] 1.015 Not Available [facility] [address] [facility], [place], [address], 01/19/2023 13:10:14 01/20/20 23 01/19/2023 urina lysis , dipst ick Ketone Negati ve Not Available [address], [place], [address], 01/19/2023 13:10:14 01/20/20 23 01/19/2023 urina lysis , dipst ick Bilirubin Negati ve Not Available [address], [place], [address], 01/19/2023 13:10:14 01/20/20 23 01/19/2023 urina lysis , dipst ick Glucose Negati ve Not Available [address], [place], [address], 01/19/2023 13:10:14 01/20/20 23 01/19/2023 urina lysis , dipst ick Appearance Clear Not Available [address], [place], [address], 01/19/2023 13:10:14 01/20/20 23 01/19/2023 urina lysis , dipst ick Color Dark Yellow Not Available [address], [place], [address], 01/19/2023 13:10:14 03/04/20 23 03/06/2023 CULTU RE, URINE , ROUTI NE culture, urine, routine SEE NOTE abnormal CULTU RE, URINE , ROUTI NE Micro Numbe r: [id number] Test Statu s: Final Speci men Sourc e: Urine , clean catch Speci men Quali ty: Adequ ate Resul t: Great er than 100,0 00 CFU/m L of Klebs iella pneum oniae K.pne umoni ae ----- ----- ----- - INT FUNMI AMOX/ CLAVU LANAT E S <=2 AMP/S ULBAC KEARNEY S 4 CEFAZ ANIKET NR <=4 2 CEFEP MARIE S <=0.1 2 CEFTA ZIDIM E S <=1 CEFTR IAXON E S <=0.2 5 CIPRO FLOXA ELIEL S 0.12 GENTA MICIN S <=1 IMIPE NEM S 0.5 LEVOF LOXAC IN S <=0.1 2 MEROP ENEM S <=0.2 5 NITRO FURAN TOIN I 64 PIP/T AZOBA CTAM S <=4 TRIME THOPR IM/NASSAR LFA S <=20 S=Amparo cepti ble I=Int ermed iate R=Res istan t * = Not Teste d NR = Not Repor kleber NN = See Thera py Comme nts THERA PY COMME NTS Note 1: For infec tions other than uncom plica kleber UTI cause d by E. coli, K. pneum oniae or P. mirab ilis: Cefaz aniket is resis tant if FUNMI > or = 8 mcg/m L. (Dist ingui shing susce ptibl e versu s inter media te for isola osorio with FUNMI < or = 4 mcg/m L requi res addit ional testi ng.) Note 2: For uncom plica kleber UTI cause d by E. coli, K. pneum oniae or P. mirab ilis: Cefaz aniket is susce ptibl e if FUNMI <32 mcg/m L and predi cts susce ptibl e to the oral agent s cefac eileen, cefdi dionne, cefpo doxim e, cefpr ozil, cefur oxime , cepha lexin and lorac arbef . Not Available [facility] [address] [place], [address], 03/06/2023 09:14:42 03/04/20 23 03/07/2023 HOUSE ACCOU NT TRACK ING tracking house account We were unabl e to ident ana luisa an accou nt numbe r for the order submi tted. If you do not have a [facility] accou nt numbe r or if your accou nt infor matio n needs to be updat ed pleas e call [phone] for ed tance . To preve nt delay s in testi ng and proce ssing of your order s pleas e provi de the follo wing infor matio n for this order and with every addit ional order submi tted: [facility] accou nt numbe r and accou nt name Clien t addre ss Clien t phone and fax numbe r NPI numbe r of order ing physi juventino along with the physi juventino name. Not Available [employer] [place] [address] [place], [address], 03/07/2023 09:48:01 03/04/20 23 03/07/2023 HOUSE ACCOU NT TRACK ING copy(ies) sent to: [facility] [address] [address] Not Available [employer] [facility] [place] [address] [place], [address], 03/07/2023 09:48:01 03/04/20 23 03/04/2023 VAGIN ITIS PLUS STD PANEL vaginitis plus STD panel no specim an rec'd to DANIEL Not Available [place] [facility] [address] [place], [address], 03/10/2023 12:20:12 03/04/20 23 03/04/2023 urina lysis , dipst ick Leukocytes Large Not Available [address], [address], 03/04/2023 14:20:29 03/04/20 23 03/04/2023 urina lysis , dipst ick Nitrite negati ve Not Available [address] [place], [address], 03/04/2023 14:20:29 03/04/20 23 03/04/2023 urina lysis , dipst ick Urobilinogen .2 Not Available [facility] [address], [place], [address], 03/04/2023 14:20:29 03/04/20 23 03/04/2023 urina lysis , dipst ick Protein 100 Not Available [place] [address], [place], [address], 03/04/2023 14:20:29 03/04/20 23 03/04/2023 urina lysis , dipst ick pH 7.5 Not Available [address], [place], [address], 03/04/2023 14:20:29 03/04/20 23 03/04/2023 urina lysis , dipst ick Blood Large Not Available [place] [address], [place], [address], 03/04/2023 14:20:29 03/04/20 23 03/04/2023 urina lysis , dipst ick Specific [place] 1.015 Not Available [facility] [address], [place], [address], 03/04/2023 14:20:29 03/04/20 23 03/04/2023 urina lysis , dipst ick Ketone Negati ve Not Available [place] [address], [place], [address], 03/04/2023 14:20:29 03/04/20 23 03/04/2023 urina lysis , dipst ick Bilirubin Negati ve Not Available [place] [address] [place] [address] Bl, [place], [address], 03/04/2023 14:20:29 03/04/20 23 03/04/2023 urina lysis , dipst ick Glucose Negati ve Not Available [facility] [address] [place] [address] Bl, [place], [address], 03/04/2023 14:20:29 03/04/20 23 03/04/2023 urina lysis , dipst ick Appearance Cloudy Not Available [address], [place], [address], 03/04/2023 14:20:29 03/04/20 23 03/04/2023 urina lysis , dipst ick Color Sutter Not Available [address], [place], [address], 03/04/2023 14:20:29 05/15/20 22 05/11/2022 US, trans vagin al No observ ation record ed. jyoti Carranza [address], [place], [address], 05/16/2022 15:21:35 Result Notes None recorded. Problems Name Problem SNOMED Code Status Onset Date Resolution Date Notes Provider Name and Address Organization Details Recorded Time SNOMED CT Concept Completed 201808/15/2019 Supervis ion of other high risk pregnanc ies, first trimeste r; Progress : Stable Added By: Isaura Green Add to Current Problems : NO ProblemS tatus: Resolve Not Available [facility] 2 20:35:33 Pregnanc y, childbir th and puerperi um finding Completed 201808/15/2019 Encounte r for supervis ion of normal first pregnanc y, first trimeste r; Progress : Stable Added By: Melissa Blackwood Add to Current Problems : NO ProblemS tatus: Resolve Not Available [facility] 2 20:35:51 Pregnanc y, childbir th and puerperi um finding Completed 201804/04/2019 Encounte r for supervis ion of normal first pregnanc y, second trimeste r; Progress : Stable Added By: Viki Muñoz Add to Current Problems : NO ProblemS tatus: Resolve Not Available [facility] 2 20:35:47 Follicul ar cyst of ovary [id number] Completed 201711/08/2018 Ovarian cyst; Progress : Stable Added By: Lory Greene Add to Current Problems : NO ProblemS tatus: Resolve Ovarian cyst; Location : None Progress : Stable Added By: Lory Greene Add to Current Problems : YES ProblemS tatus: Current Not Available [facility] 2 20:35:31 Urine finding [id number] Completed 201204/15/2014 Positive urine nitrite; Progress : Stable Added By: Sulma Ruiz Add to Current Problems : NO ProblemS tatus: Resolve Not Available [facility] 2 20:35:35 Vulvovag initis [id number] Completed 201304/19/2015 Vagintiu s Unspecif ied; Location : None Progress : Stable Added By: Catherine Joyner Add to Current Problems : YES ProblemS tatus: Resolve Not Available [facility] 2 20:35:38 Pain of breast 57253990 Completed 201712/19/2018 Mastodyn ia; Progress : Stable Added By: Shakila Flores Add to Current Problems : NO ProblemS tatus: Resolve Not Available [facility] 20:[address] Concept Completed 201804/04/2019 Supervis ion of other high risk pregnanc ies, second trimeste r; Progress : Stable Added By: Isaura Green Add to Current Problems : NO ProblemS tatus: Resolve Not Available [facility] 2 20:35:39 Infestat ion by Sarcopte s scabiei carlos hominis [id number] Completed 201203/28/2014 Scabies; Progress : Stable Added By: Marla Martinez Add to Current Problems : NO ProblemS tatus: Resolve Not Available [facility] 2 20:35:46 Uses contrace ption 30479037 Completed 201711/08/2017 Contrace ption advice, other method; Location : None Severity : Moderate Progress : Stable Added By: Marla Martinez Add to Current Problems : YES ProblemS tatus: Resolve Not Available [facility] 1 04:22:40 Amenorrh ea [id number] Completed 201304/15/2014 Secondar y amenorrh ea; Progress : Stable Added By: Karlee Byers Add to Current Problems : NO ProblemS tatus: Resolve Not Available [facility] 2 20:35:38 Gestatio n period, 23 weeks 10048642 Completed 201804/04/2019 23 weeks gestatio n of pregnanc y; Progress : Stable Added By: Martha Ortega Add to Current Problems : NO ProblemS tatus: Resolve Not Available [facility] 2 20:35:54 Gestatio n period, 28 weeks 74572458 Completed 201808/15/2019 28 weeks gestatio n of pregnanc y; Progress : Stable Added By: Diana Ramirez Add to Current Problems : NO ProblemS tatus: Resolve Not Available [facility] 2 20:35:32 Nondepen dent harmful pattern of use of opioid in [facility] 177896192 Completed 201808/15/2019 Opioid abuse, in [facility] n; Progress : Stable Added By: Diana Ramirez Add to Current Problems : NO ProblemS tatus: Resolve Not Available [facility] 2 20:35:52 Subacute and chronic vaginiti s [id number] Completed 201410/05/2015 Subacute and chronic vaginiti s; Progress : Stable Added By: Angella Suero Add to Current Problems : NO ProblemS tatus: Resolve Not Available [facility] 2 20:35:50 Gestatio n period, 20 weeks 28752949 Completed 201804/04/2019 20 weeks gestatio n of pregnanc y; Progress : Stable Added By: Isaura Green Add to Current Problems : NO ProblemS tatus: Resolve Not Available [facility] 2 20:35:34 Injectio n given [id number] Completed 201612/14/2017 Follow-u p visit for Depo Provera injectio n; Location : None Severity : Moderate Progress : Stable Added By: Margaret Nelson Add to Current Problems : YES ProblemS tatus: Resolve Follow-u p visit for Depo Provera injectio n; Severity : Moderate Progress : Stable Added By: Lillie Nolen Add to Current Problems : NO ProblemS tatus: Resolve; Start Date : 12/06/19 15 Not Available [facility] 1 04:22:41 Threaten ed miscarri age [id number] Completed 201804/04/2019 Threaten ed ; Progress : Stable Added By: Lory Greene Add to Current Problems : NO ProblemS tatus: Resolve Not Available [facility] 2 20:35:53 Harmful pattern of use of volatile inhalant 67732818 Completed 201508/30/2016 Inhalant abuse, uncompli cated; Progress : Stable Added By: Vinita Calvin Add to Current Problems : NO ProblemS tatus: Resolve Not Available [facility] 2 20:35:44 Gestatio n period, 38 weeks 13832713 Completed 201808/15/2019 38 weeks gestatio n of pregnanc y; Progress : Stable Added By: Melissa Blackwood Add to Current Problems : NO ProblemS tatus: Resolve Not Available [facility] 2 08:02:25 Gestatio n period, 16 weeks 53085766 Completed 201804/04/2019 16 weeks gestatio n of pregnanc y; Progress : Stable Added By: Melissa Blackwood Add to Current Problems : NO ProblemS tatus: Resolve Not Available [facility] 2 20:35:40 Vaginiti s and vulvovag initis Completed 201212/04/2013 Vaginiti s; Severity : Moderate Progress : Stable Added By: Milton Fonseca Add to Current Problems : NO ProblemS tatus: Resolve Not Available [facility] 1 04:22:42 Cystitis of pregnanc y 622698780 Completed 201804/04/2019 Infectio ns of bladder in pregnanc y, second trimeste r; Progress : Stable Added By: Isaura Green Add to Current Problems : NO ProblemS tatus: Resolve Not Available [facility] 2 20:35:49 Urinary tract infectio us disease 58495294 Completed 201709/04/2018 UTI; Progress : Stable Added By: Thom Vega Add to Current Problems : NO ProblemS tatus: Resolve; Start Date : 07/03/20 14 UTI; Location : None Progress : Stable Added By: Rosalina Rivera Add to Current Problems : YES ProblemS tatus: Resolve UTI; Location : None Progress : Stable Added By: Angella Suero Add to Current Problems : YES ProblemS tatus: Resolve; Start Date : 12/03/19 16 Urina ry tract infectio n, site not specifie d; Progress : Stable Added By: Elke Moreira Add to Current Problems : NO ProblemS tatus: Resolve; Start Date : 12/03/19 16 Not Available [facility] 2 20:35:54 Pregnanc y test negative 610331112 Completed 201306/14/2014 Pregnanc y examinat ion or test, negative result; Location : None Progress : Stable Added By: Keith Sullivan Add to Current Problems : YES ProblemS tatus: Resolve Pregnanc y examinat ion or test, negative result; Location : None Progress : Stable Added By: Sulma Ruiz Add to Current Problems : NO ProblemS tatus: Resolve; Start Date : 03/04/20 13 Not Available Formerly [facility], 1928–1983 2 20:35:31 Exposure to potentia lly harmful entity Completed 201508/30/2016 Occupati onal exposure to other risk factors; Progress : Stable Added By: Angella Suero Add to Current Problems : NO ProblemS tatus: Resolve Not Available Formerly [facility], [facility]–1983 2 20:35:43 At high risk of sexually transmit kleber infectio n [id number] Completed 201704/20/2018 STD Screenin g; Location : None Severity : Moderate Progress : Stable Added By: Diana Ramirez Add to Current Problems : YES ProblemS tatus: Resolve Not Available [facility] 1 04:22:[address] Concept Completed 201512/14/2017 Encounte r for surveill ance of other contrace ptives; Progress : Stable Added By: Margaret Nelson Add to Current Problems : NO ProblemS tatus: Resolve Not Available [facility] 2 20:35:33 Surveill ance of oral contrace ption done [id number] Completed 201212/04/2013 Contrace ptive surveill ance, unspecif ied; Location : None Severity : Moderate Progress : Stable Added By: Sulma Ruiz Add to Current Problems : NO ProblemS tatus: Resolve Not Available [facility] 1 04:22:44 Pregnanc y, childbir th and puerperi um finding Completed 201808/15/2019 Encounte r for supervis ion of normal first pregnanc y, third trimeste r; Progress : Stable Added By: Diana Ramirez Add to Current Problems : NO ProblemS tatus: Resolve Not Available [facility] 2 20:35:30 Pelvic and perineal pain [id number] Completed 201712/19/2018 Pelvic and perineal pain; Progress : Stable Added By: Rajani Bo Add to Current Problems : NO ProblemS tatus: Resolve Not Available [facility] 2 08:02:25 Gestatio n period, 26 weeks [id number] Completed 201808/15/2019 26 weeks gestatio n of pregnanc y; Progress : Stable Added By: Isaura Green Add to Current Problems : NO ProblemS tatus: Resolve Not Available [facility] 2 20:35:37 Gestatio n period, 32 weeks [id number] Completed 201808/15/2019 32 weeks gestatio n of pregnanc y; Progress : Stable Added By: Isaura Green Add to Current Problems : NO ProblemS tatus: Resolve Not Available [facility] 2 20:35:36 Cyst of ovary [id number] Completed 201712/19/2018 Unspecif ied ovarian cysts; Progress : Stable Added By: Shakila Flores Add to Current Problems : NO ProblemS tatus: Resolve Not Available [facility], [facility] 2 20:35:50 Female genital organ symptoms [id number] Completed 201702/13/2019 Pelvic pain; Location : None Progress : Stable Added By: Nikhil Ellis Add to Current Problems : YES ProblemS tatus: Resolve; Start Date : 07/03/20 14 Pelvi c pain; Location : None Progress : Stable Added By: Rajani Bo Add to Current Problems : YES ProblemS tatus: Resolve Not Available [facility], [facility] 2 20:35:41 Refracto ry migraine without aura [id number] Completed 201808/15/2019 Migraine without aura, intracta ble, with status migraino amparo; Progress : Stable Added By: Jagruti Vega Add to Current Problems : NO ProblemS tatus: Resolve Not Available [facility], [facility] 2 20:35:42 Gestatio n period, 36 weeks [id number] Completed 201808/15/2019 36 weeks gestatio n of pregnanc y; Progress : Stable Added By: Isaura Green Add to Current Problems : NO ProblemS tatus: Resolve Not Available [facility], [facility] 2 20:35:42 Gestatio n period, 17 weeks [id number] Completed 201804/04/2019 17 weeks gestatio n of pregnanc y; Progress : Stable Added By: Melissa Blackwood Add to Current Problems : NO ProblemS tatus: Resolve Not Available [facility], [facility] 2 20:35:36 Gestatio n period, 30 weeks [id number] Completed 201808/15/2019 30 weeks gestatio n of pregnanc y; Progress : Stable Added By: Alisa Chung Add to Current Problems : NO ProblemS tatus: Resolve Not Available [facility], [facility] 2 20:35:32 Maternal drug exposure [id number] Completed 201808/15/2019 Drug use complica ting pregnanc y, second trimeste r; Progress : Stable Added By: Melissa Blackwood Add to Current Problems : NO ProblemS tatus: Resolve; Start Date : 01/23/20 19 Drug use complica ting pregnanc y, third trimeste r; Progress : Stable Added By: Elke Moreira Add to Current Problems : NO ProblemS tatus: Resolve Not Available [facility], [facility] 2 20:35:[address] Concept Completed 201808/15/2019 Supervis ion of other high risk pregnanc ies, third trimeste r; Progress : Stable Added By: Melissa Blackwood Add to Current Problems : NO ProblemS tatus: Resolve Not Available [facility], [facility] 2 20:35:45 Increase d frequenc y of urinatio n [id number] Completed 201403/23/2016 Frequenc y of micturit ion; Progress : Stable Added By: Angella Suero Add to Current Problems : NO ProblemS tatus: Resolve Urinary frequenc y; Location : None Progress : Stable Added By: Angella Suero Add to Current Problems : YES ProblemS tatus: Resolve Not Available [facility], [facility] 2 20:35:41 Genitour inary chlamydi a infectio n [id number] Completed 201711/07/2017 Chlamydi a trachoma tic infectio n, NEC; Location : None Progress : Stable Added By: Marla Martinez Add to Current Problems : YES ProblemS tatus: Resolve Chlamydi al infectio n of genitour inary tract, unspecif ied; Progress : Stable Added By: Marla Martinez Add to Current Problems : NO ProblemS tatus: Resolve Not Available [facility], [facility] 2 08:02:26 Acute vaginiti s [id number] Completed 201502/01/2016 Acute vaginiti s; Progress : Stable Added By: Nikhil Ellis Add to Current Problems : NO ProblemS tatus: Resolve Vaginiti s; Location : None Progress : Stable Added By: Nikhil Ellis Add to Current Problems : YES ProblemS tatus: Resolve Not Available [facility], [facility] 2 08:02:25 Drug abuse [id number] Completed 201508/30/2016 Other drug abuse, unspecif ied; Progress : Stable Added By: Vinita Calvin Add to Current Problems : NO ProblemS tatus: Resolve Not Available [facility] 2 20:35:49 Gestatio n less than 9 weeks [id number] Completed 201804/04/2019 Less than 8 weeks gestatio n of pregnanc y; Progress : Stable Added By: Melissa Blackwood Add to Current Problems : NO ProblemS tatus: Resolve Not Available [facility] 2 20:35:35 Gestatio n period, 11 weeks [id number] Completed 201804/04/2019 11 weeks gestatio n of pregnanc y; Progress : Stable Added By: Isaura Green Add to Current Problems : NO ProblemS tatus: Resolve Not Available [facility] 2 20:35:55 Gestatio n period, 19 weeks [id number] Completed 201804/04/2019 19 weeks gestatio n of pregnanc y; Progress : Stable Added By: Viki Muñoz Add to Current Problems : NO ProblemS tatus: Resolve Not Available [facility] 2 20:35:53 History of urinary tract infectio n [id number] 07 Active 2018 Personal history of urinary (tract) infectio ns; Severity : Moderate Progress : Stable Added By: Isaura Green Add to Current Problems : YES ProblemS tatus: Current Nohemi Green MD [address] [facility], [place], [address] , [facility] 2 05:55:40 Gestatio n period, 34 weeks [id number] Completed 201808/15/2019 34 weeks gestatio n of pregnanc y; Progress : Stable Added By: Diana Ramirez Add to Current Problems : NO ProblemS tatus: Resolve Not Available [facility] 2 20:35:40 Leukorrh ea [id number] Completed 201212/04/2013 Vaginal Discharg e; Location : None Progress : Stable Added By: Karlee Byers Add to Current Problems : NO ProblemS tatus: Resolve Not Available [facility] 2 20:35:47 Pregnanc y detectio n examinat ion Completed 201804/04/2019 Encounte r for pregnanc y test, result positive ; Progress : Stable Added By: Shakila Flores Add to Current Problems : NO ProblemS tatus: Resolve Not Available [facility] 2 20:35:32 Family planning surveill ance Completed 201711/21/2017 Depo-Pro vera injectio n and follow up; Location : None Progress : Stable Added By: Elke Moreira Add to Current Problems : YES ProblemS tatus: Resolve Depo-Pro vera injectio n and follow up; Location : None Progress : Stable Added By: Marla Martinez Add to Current Problems : YES ProblemS tatus: Resolve; Start Date : 03/14/20 17 Follo w-up visit for Depo Provera injectio n; Location : None Progress : Stable Added By: Margaret Nelson Add to Current Problems : YES ProblemS tatus: Resolve; Start Date : 03/14/20 17 Depo- Provera injectio n and follow up; Location : None Progress : Stable Added By: Alisha Finch Add to Current Problems : YES ProblemS tatus: Resolve; Start Date : 12/28/19 17 Follo w-up visit for Depo Provera injectio n; Location : None Progress : Stable Added By: Katina Ferrari Add to Current Problems : NO ProblemS tatus: Resolve; Start Date : 04/12/20 16 Follo w-up visit for Depo Provera injectio n; Location : None Progress : Stable Added By: Lillie Nolen Add to Current Problems : YES ProblemS tatus: Resolve; Start Date : 12/06/19 15 Depo- Provera injectio n and follow up; Progress : Stable Added By: Marla Martinez Add to Current Problems : NO ProblemS tatus: Resolve; Start Date : 06/26/20 13 Contr aceptive surveill ance, unspecif ied; Location : None Progress : Stable Added By: Sulma Ruiz Add to Current Problems : NO ProblemS tatus: Resolve; Start Date : 03/04/20 13 Not Available [facility] 2 20:35:43 Antenata l screenin g for malforma tion Completed 201804/04/2019 Encounte r for antenata l screenin g for malforma tions; Progress : Stable Added By: Diana Ramirez Add to Current Problems : NO ProblemS tatus: Resolve Not Available [facility] 2 20:35:43 Vaginiti s and vulvovag initis Completed 201410/05/2015 Bacteria l vaginosi s; Progress : Stable Added By: Angella Suero Add to Current Problems : NO ProblemS tatus: Resolve Vaginiti s; Location : None Progress : Stable Added By: Milton Fonseca Add to Current Problems : NO ProblemS tatus: Resolve; Start Date : 03/04/20 13 Not Available [facility] 2 20:35:45 Antenata l screenin g Completed 201808/15/2019 Encounte r for antenata l screenin g for Streptoc occus B; Progress : Stable Added By: Isaura Green Add to Current Problems : NO ProblemS tatus: Resolve Encounte r for other specifie d antenata l screenin g; Progress : Stable Added By: Melissa Blackwood Add to Current Problems : NO ProblemS tatus: Resolve; Start Date : 11/20/19 19 Not Available [facility] 2 20:35:55 Viral hepatiti s C 06102385 Active 2021 Nohemi Green MD [address] [place] [address], [phone] , [facility] 2 05:54:37 History of intraven ous drug abuse [id number] 449993 Active 2021 Nohemi Green MD [address] [place] [address], [phone] , [facility] 2 05:54:56 Continuo us opioid dependen ce 318542052 Active 2021 Nohemi Green MD [address] [place] [address], [phone] , [facility] 2 05:55:20 Problem Notes None recorded. Procedures Surgical History Date Name Laterality Status Provider Name and Address Organization Details Recorded Time 3 Depo Provera Injection completed Catherine Joyner [facility] 12/28/2022 12:50:59 2 Date of Last Pap Smear completed Maria Hernandez [facility] 05/11/2022 12:13:42 8 excision of cyst of ovary completed Elke Moreira, NP [address] [facility], [place], [address], [facility] 03/11/2022 15:52:49 Imaging Results Imaging Date Name Status LastModified by Organization Details LastModified Time 05/11/2022 US, transvaginal completed [facility] [address], [place], [address], 05/16/2022 15:21:35 Procedure Notes None recorded. Medical Equipment None Reported. Allergies Allergen ID Allergen Name Allergen Category Reaction Reaction Severity Criticality Documentation Date Start Date Code Code System Note Provider Name and Address Organization Details Recorded Time 593491 Toradol medicatio n Not available Not available Not available 04/20/2022 52477 RxNorm Eliel chou, [facility] 2 11:10:41 354970 shellfish derived food,medi cation Not available Not available Not available 04/20/2022 97340 UNK Eliel Jerez [facility] 2 11:10:49 Medications Name Sig Start Date Stop Date Status Note LastModified by Organization Details LastModified Time cyclobenz aprine 10 mg tablet 12/28 completed Not Available Not Available Not Available furosemid e 40 mg tablet TAKE 1 TABLET BY MOUTH FOR 7 DAYS 12/28 completed Not Available Not Available Not Available Augmentin 875 mg-125 mg tablet Take 1 tablet every 12 hours by oral route for 10 days. 2022 active Not Available Not Available Not Avai lable nystatin 100,000 unit/mL oral suspensio n TAKE 5 ML (500,000 UNITS TOTAL) BY MOUTH 4 (FOUR) TIMES A DAY SWISH IN MOUTH AND SPIT OUT. 03/14 completed Not Available Not Available Not Available clonidine HCl 0.1 mg tablet 01/19 completed Not Available Not Available Not Available doxycycli ne hyclate 100 mg capsule 12/28 completed Not Available Not Available Not Available Vitamin B-6 25 mg tablet Take 1 tablet PO three times daily 01/22 completed Vitamin B6 25mg Tablet RxNorm: [id number] Allow Substitu tion: True Refill Denied: No Not Available Not Available Not Available ropinirol e 1 mg tablet TAKE 1 TABLET BY MOUTH THREE TIMES A DAY 03/14 completed Not Available Not Available Not Available clonidine 0.1 mg/24 hr weekly transderm al patch APPLY 1 PATCH TRANSDER JAIME EVERY 7 DAYS 03/14 completed Not Available Not Available Not Available trazodone 50 mg tablet TAKE 1 TABLET BY MOUTH EVERYDAY AT BEDTIME 03/14 completed Not Available Not Available Not Available azithromy eliel 250 mg tablet TAKE 2 TABLETS BY MOUTH TODAY, THEN TAKE 1 TABLET DAILY FOR 4 DAYS 12/28 completed Not Available Not Available Not Available clonidine 0.2 mg/24 hr weekly transderm al patch APPLY 1 PATCH TRANSDER JAIME WEEKLY 03/14 completed Not Available Not Available Not Available fosfomyci n trometham ine 3 gram oral packet MIX AND DRINK 1 PACKET BY MOUTH EVERY 72 HOURS FOR 9 DAYS 03/04 completed Not Available Not Available Not Available miconazol e nitrate 2 % topical cream APPLY TOPICALL Y TO THE AFFECTED AREA DAILY 12/28 completed Not Available Not Available Not Available ibuprofen 800 mg tablet 03/04 completed Not Available Not Available Not Available alprazola m 1 mg tablet TAKE 1 TABLET BY MOUTH TWICE DAILY 03/04 completed Not Available Not Available Not Available fluconazo le 150 mg tablet TAKE 1 TABLET BY MOUTH NOW. REPEAT IN 3 DAYS NEEDED 12/28 completed Not Available Not Available Not Available benzonata te 200 mg capsule TAKE 1 CAPSULE (200 MG TOTAL) BY MOUTH 3 (THREE) TIMES DAILY NEEDED FOR COUGH. 03/14 completed Not Available Not Available Not Available ampicilli n 500 mg capsule Take 1 capsule every 6 hours by oral route for 10 days. 2022 active Not Available Not Available Not Avai lable Xanax 2 mg tablet Take 1 tablet(s ) by mouth bid 05/22 completed Xanax 2mg Tablet RxNorm: 214755 Allow Substitu tion: True Refill Denied: No Refill Note: Auto Aged Refill DateOccu rred: 03/23/20 16 Not Available Not Available Not Available dronabino l 5 mg capsule TAKE 1 CAPSULE BY MOUTH THREE TIMES DAILY 03/14 completed Not Available Not Available Not Available methadone 10 mg tablet 01/22 completed Methadon e HCl RxNorm: 0 Allow Substitu tion: True Refill Denied: No Refill Note: No cancel reason selected Refill DateOccu rred: 11/20/19 19 Not Available Not Available Not Available minocycli ne 100 mg capsule TAKE 1 CAPSULE BY MOUTH TWICE A DAY 05/31 completed Not Available Not Available Not Available naltrexon e 50 mg tablet TAKE 1 TABLET BY MOUTH EVERY DAY 03/14 completed Not Available Not Available Not Available metronida zole 0.75 % (37.5 mg/5 gram) vaginal gel 1 applicat or in vagina @ HS x 5 nights. 05/17 completed Metronid azole 0.75% Vaginal Gel Allow Substitu tion: True Refill Denied: No Not Available Not Available Not Available prednison e 20 mg tablet 12/28 completed Not Available Not Available Not Available Pyridium 100 mg tablet Take 1 tablet(s ) by mouth tid 06/26 completed Pyridium 100mg Tablet RxNorm: 397919 Allow Substitu tion: True Refill Denied: No For Problem: Dysuria Not Available Not Available Not Available terconazo le 0.8 % vaginal cream INSERT ONE APPLICAT ORFUL VAGINALL Y AT BEDTIME FOR 3 NIGHTS 12/28 completed Not Available Not Available Not Available Cleocin 100 mg vaginal supposito ry Insert 1 applicat orful(s) in vagina at bedtime for 3 days 05/17 completed Cleocin Vaginal 2% Vaginal Cream RxNorm: 283122 Allow Substitu tion: True Refill Denied: No Not Available Not Available Not Available clobetaso l 0.05 % topical cream APPLY TOPICALL Y TO THE AFFECTED AREA TWICE DAILY NEEDED 12/28 completed Not Available Not Available Not Available permethri n 5 % topical cream Apply head to toe, allow to sit for 8 hours then shower. 08/25 completed Permethr in 5% Cream RxNorm: 565217 Allow Substitu tion: True Refill Denied: No For Problem: Scabies Not Available Not Available Not Available venlafaxi ne ER 150 mg capsule,e xtended release 24 hr TAKE 1 CAPSULE (150 MG TOTAL) BY MOUTH DAILY TAKE WITH FOOD. 03/14 completed Not Available Not Available Not Available hydroxyzi ne pamoate 50 mg capsule 01/19 completed Not Available Not Available Not Available metronida zole 500 mg tablet TAKE 1 TABLET BY MOUTH EVERY 12 HOURS 03/04 completed Not Available Not Available Not Available ciproflox acin 500 mg tablet TAKE 1 TABLET BY MOUTH TWICE A DAY FOR 7 DAYS 03/14 completed Not Available Not Available Not Available sulfameth oxazole 800 mg-trimet hoprim 160 mg tablet TAKE 1 TABLET BY MOUTH TWICE DAILY UNTIL ALL TAKEN 12/28 completed Not Available Not Available Not Available ondansetr on 8 mg disintegr ating tablet DISSOLVE 1 TABLET IN MOUTH THREE TIMES DAILY NEEDED FOR NAUSEA AND VOMITING 03/14 completed Not Available Not Available Not Available baclofen 20 mg tablet TAKE 1 TABLET BY MOUTH THREE TIMES A DAY 03/14 completed Not Available Not Available Not Available ketorolac 10 mg tablet TAKE 1 TABLET BY MOUTH EVERY 8 HOURS NEEDED 12/28 completed Not Available Not Available Not Available Vitamin tablet 04/24 completed Multivit babcock RxNorm: 0 Allow Substitu tion: True Refill Denied: No Refill Note: Refill Prescrib ed Refill DateOccu rred: 11/20/19 19 Not Available Not Available Not Available alprazola m 0.5 mg tablet TAKE 1 TABLET BY MOUTH TWICE DAILY NEEDED 12/28 completed Not Available Not Available Not Available alprazola m 0.25 mg tablet TAKE 1 TABLET BY MOUTH TWICE DAILY NEEDED 12/28 completed Not Available Not Available Not Available citalopra m 20 mg tablet TAKE 1 TABLET BY MOUTH DAILY 04/20 completed Not Available Not Available Not Available lorazepam 0.5 mg tablet 12/28 completed Not Available Not Available Not Available methocarb félix 750 mg tablet TAKE 1 TABLET BY MOUTH THREE TIMES A DAY 01/19 completed Not Available Not Available Not Available Depo-Prov era 150 mg/mL intramusc ular suspensio n 1 injectio n IM q3mos. 2022 active Not Available Not Available Not Avai lable betametha sone valerate 0.1 % topical cream APPLY TOPICALL Y TO THE AFFECTED AREA TWICE DAILY NEEDED 12/28 completed Not Available Not Available Not Available cephalexi n 500 mg capsule take 1 capsule (500 mg) by oral route 2 times per day for 10 d 12/28 completed Not Available Not Available Not Available erythromy eliel 5 mg/gram (0.5 %) eye ointment APPLY A SMALL AMOUNT TO AFFECTED RIGHT EYE EVERY NIGHT 03/14 completed Not Available Not Available Not Available neomycin- polymyxin -dexameth 3.5 mg/mL-10, 000 unit/mL-0 .1% eye drops INSTILL 1 DROP INTO RIGHT EYE FOUR TIMES A DAY SHAKE WELL 03/14 completed Not Available Not Available Not Available Macrodant in 50 mg capsule take 1 capsule (50 mg) by oral route once daily at bedtime with food 07/11 completed Macrodan tin 50 mg oral capsule RxNorm: [id number] Allow Substitu tion: True Refill Denied: No Edited by: Diana Burdick) on 07/11/20 Stopped by: Diana Burdick) on 07/11/20 19 Not Available Not Available Not Available promethaz ine 25 mg tablet 12/28 completed Not Available Not Available Not Available Valtrex 1 gram tablet Take 1 tablet every day by oral route for 5 days. 2022 active Not Available Not Available Not Avai lable gabapenti n 300 mg capsule TAKE 1 CAPSULE BY MOUTH THREE TIMES A DAY 03/14 completed Not Available Not Available Not Available sertralin e 25 mg tablet 01/19 completed Not Available Not Available Not Available buspirone 7.5 mg tablet take 1 tablet (7.5 mg) by oral route 2 times per day 06/26 completed busPIRon e 7.5 mg oral tablet RxNorm: [id number] Allow Substitu tion: False Refill Denied: No Refill DateOccu rred: 06/13/20 19 Edited by: Melissa Clifton ) on 06/26/20 Stopped by: Melissa Clifton ) on 06/26/20 19 Not Available Not Available Not Available Cleocin 2 % vaginal cream Insert 1 applicat orful(s) in vagina at bedtime for 3 days 05/17 completed Cleocin Vaginal 2% Vaginal Cream RxNorm: [id number] Allow Substitu tion: True Refill Denied: No Not Available Not Available Not Available Valtrex 500 mg tablet take 1 tab PO twice daily for 5 days when has outbreak . 02/16 completed Valtrex 500mg Tablet RxNorm: 287486 Allow Substitu tion: True Refill Denied: No Not Available Not Available Not Available furosemid e 20 mg tablet TAKE ONE-HALF TABLET BY MOUTH DAILY FOR 7 DAYS 12/28 completed Not Available Not Available Not Available lorazepam 1 mg tablet TAKE 1 TABLET BY MOUTH EVERY DAY 12/28 completed Not Available Not Available Not Available Tylenol-C odeine #3 300 mg-30 mg tablet 02/21 completed Tylenol w/Codein e #3 300mg/30 mg Tablet RxNorm: 682276 Allow Substitu tion: True Refill Denied: No Refill DateOccu rred: 01/23/20 19 Not Available Not Available Not Available polyethyl yanique glycol 3350 17 gram/dose oral powder MIX 1 CAPFUL OF POWDER IN LIQUID AND DRINK EVERY DAY 12/28 completed Not Available Not Available Not Available albuterol sulfate HFA 90 mcg/actua tion aerosol inhaler INHALE 2 PUFFS EVERY 4 HOURS NEEDED FOR WHEEZING 03/04 completed Not Available Not Available Not Available ondansetr on 4 mg disintegr ating tablet TAKE 1 TABLET BY MOUTH EVERY 8 HOURS NEEDED FOR NAUSEA 03/14 completed Not Available Not Available Not Available fluticaso ne propionat e 50 mcg/actua tion nasal spray,amparo pension SPRAY 1 SPRAY BY NASAL ROUTE EVERY DAY 03/14 completed Not Available Not Available Not Available clotrimaz ole 1 % topical cream APPLY TOPICALL Y THREE TIMES DAILY DIRECTED TO AFFECTED AREA 12/28 completed Not Available Not Available Not Available sertralin e 50 mg tablet 1 p.o. qd 01/19 completed Not Available Not Available Not Available doxycycli ne hyclate 100 mg tablet Take 1 tablet twice a day by oral route for 10 days. 2022 active Not Available Not Available Not Avai lable dicyclomi ne 10 mg capsule TAKE 1 CAPSULE BY MOUTH THREE TIMES A DAY 03/14 completed Not Available Not Available Not Available hydroxyzi ne pamoate 25 mg capsule TAKE 1 CAPSULE BY MOUTH TWICE DAILY NEEDED FOR ANXIETY 01/19 completed Not Available Not Available Not Available medroxypr ogesteron e 150 mg/mL intramusc ular syringe INJECT 1 MILLILIT ER (150 MG) BY INTRAMUS CULAR ROUTE EVERY 3 MONTHS 03/14 completed MEDROXYP ROGESTER ONE 150 MG/ML Refill Denied: No Edited by: Carmel Pena) on 06/09/20 Stopped by: Carmel Pena) on Not Available Not Available Not Available Zithromax 500 mg tablet Take 2 tablets by mouth now with food. 07/14 completed Zithroma x 500mg Tablet RxNorm: [id number] Allow Substitu tion: True Refill Denied: No Not Available Not Available Not Available Vani-BE 0.35 mg tablet take 1 tablet by oral route once daily 03/09 completed Vani-BE 0.35 mg oral tablet RxNorm: 784957 Allow Substitu tion: False Refill Denied: No Edited by: Stephanie Carlos) on 03/09/20 Stopped by: Stephanie Carlos) on 03/09/20 Not Available Not Available Not Available Clotrimaz ole 3 Day 2 % vaginal cream Insert 1 applicat orful(s) in vagina for 3 days 01/29 completed Clotrima zole 3-Day 2% Vaginal Cream RxNorm: 779040 Allow Substitu tion: True Refill Denied: No Not Available Not Available Not Available buprenorp lissa 2 mg-naloxo ne 0.5 mg sublingua l tablet 01/19 completed Not Available Not Available Not Available buprenorp lissa HCl 2 mg sublingua l tablet place 1 tablet (2 mg) by sublingu al route once daily allow to dissolve slowly in mouth without chewing or swallowi ng 01/19 completed Not Available Not Available Not Available nitrofura ntoin monohydra te/macroc rystals 100 mg capsule take 1 capsule (100 mg) by oral route 2 times per day with food 12/28 completed Not Available Not Available Not Available Zoloft 1 p.o. qd 02/21 completed Zoloft 50mg Tablet RxNorm: 659341 Allow Substitu tion: True Refill Denied: No Not Available Not Available Not Available Ativan 1 po at HS PRN 01/22 completed Ativan 0.5mg Tablet RxNorm: 053528 Allow Substitu tion: True Refill Denied: No Refill DateOccu rred: 01/23/20 19 Not Available Not Available Not Available Keflex 05/17 completed Keflex 250mg Capsules RxNorm: 311448 Allow Substitu tion: True Refill Denied: No Refill DateOccu rred: 04/07/20 16 Not Available Not Available Not Available Xanax 11/19 completed Xanax RxNorm: 596 Allow Substitu tion: True Refill Denied: No Refill Note: No cancel reason selected Refill DateOccu rred: 09/08/19 18 Not Available Not Available Not Available Depo-Prov era 04/15 completed Depo-Pro vera RxNorm: 691187 Allow Substitu tion: True Refill Denied: No Not Available Not Available Not Available Macrobid 1 capsule BID x 5 days 12/19 completed Macrobid 100mg Capsules RxNorm: 607560 Allow Substitu tion: True Refill Denied: No Refill Note: No cancel reason selected Refill DateOccu rred: 11/20/19 19 Not Available Not Available Not Available quetiapin e 50 mg tablet TAKE 1 TABLET BY MOUTH EVERYDAY AT BEDTIME 03/14 completed Not Available Not Available Not Available 28 mg iron-800 mcg tablet TAKE 1 TABLET BY MOUTH DAILY 12/28 completed Not Available Not Available Not Available Narcan 4 mg/actuat ion nasal spray INHALE 1 SPRAY INTO NOSTRIL ONE TIME FOR EMERGENC Y 03/14 completed Not Available Not Available Not Available Vienva 0.1 mg-20 mcg tablet 12/28 completed Not Available Not Available Not Available ID NOW COVID-19 Test Kit TEST DIRECTED TODAY 03/14 completed Not Available Not Available Not Available Vitals Date Recorded Body height Body mass index (BMI) Body weight Body temperature Systolic blood pressure Diastolic blood pressure Provider Name and Address Organization Details Last Updated DateTime 2 157.48 cm 25.6 kg/m2 78381.9 3 g 98.1 [degF] 120 mm[Hg] 62 mm[Hg] Eliel Jerez [facility] 2 11:10:05 Date Recorded Body height Provider Name an d Address Organization Details Last Updated DateTime 05/11/2022 157.48 cm Jennifersharee Castroy [facility] 05/11/2022 12:15:01 Date Recorded Body height Body mass index (BMI) Body weight Systolic blood pressure Diastolic blood pressure Provider Name and Address Organization Details Last Updated DateTime 12/28/2022 157.48 cm 27.1 kg/m2 36911.39 g 110 mm[Hg] 68 mm[Hg] Cira Larry [facility] 3 12:12:48 Date Recorded Body temperature Provider Name a nd Address Organization Details Last Updated DateTime 12/28/2022 98.9 [degF] Kenroy Kidd MD [address] [facility], [place], [address], [facility] 12/28/2022 12:40:36 Date Recorded Body height Body mass index (BMI) Body weight Body temperature Systolic blood pressure Diastolic blood pressure Provider Name and Address Organization Details Last Updated DateTime 3 157.48 cm 26.5 kg/m2 73224.1 8 g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
--- OUTSIDE RECORDS SUMMARY | 2024-12-28 13:33 | XMS_ITS | Patient Health Record ---
Author Organization [facility] Address [address] [place] [address] Care Team Providers Care Lane Marker Installer Name Role Phone Gwen Sellers Primary Care Provider Allergies Allergen (clinical drug ingredient) Drug/Non Drug Allergy documented on EMR Reaction Allergy Type Onset Date Status Shellfish (FN) Shellfish-derived Products Unknown Drug Allergy Active Reason For Referral No Information Medications Medication SIG (Take, Route, Frequency, Duration) Notes Start Date End Date Status Propranolol HCl 20 MG 1 tablet Orally Tw ice a day for 30 days 06/05/2023 Active fluvoxaMINE Maleate 50 MG 1 tablet at be dtime for 1 week then increase to 2 tablets at bedtime Orally Once a day for 30 days 06/05/2023 Active Valtrex 500 MG 1 tablet Orally Once a day Active traZODone HCl 50 MG 1 tablet at bedtime as needed Orally Once a day for 30 days 06/05/2023 Active Sublocade 300 MG/1.5ML 1.5 mL Subcutaneo us every 28 days 06/02/2023 Active ALPRAZolam 1 MG 1 tablet Orally Twice a day Active Influenza Vac Subunit Quad 0.5 ML as directed Intramuscular once for 1 days Active Immunizations Vaccine Route Administration Date Status Comme nts FLU VAC NO PRSV 4VAL 6 mo+ IM Intramuscular 06/02/2023 Adm inistered Social History Tobacco Use: Social History Observation Description Date Details (start date - stop date) Current Smoker NA - NA Sex Assigned At : Social History Observation Description Sex Assigned At Female Dont use, Tobacco Use/Smoking Question Answer Notes Are you a current smoker How often do you smoke cigarettes? every day Are you interested in quitting? Thinking about q uitting Additional Findings: Tobacco User e-Cigarette Section Notes: PRESCRIPTION # FILLED WRITTEN DRUG LABEL QTY DAYS STRENGTH MME PRESCRIBER PHARMACY REFILL NO. REFILLS STATE 12/27/2022 12/27/2022 ALPRAZolam 60.0 30 1 MG NA Benjamin Garcia Md [id number] [place], [place] NA 0 [place] 1 [id number] 12/18/2022 12/18/2022 LORazepam 9.0 3 0.5 MG NA Haley Bran Director Of [employer]ing Services[employer], Msn - [id number] [place], [place] NA 0 [place] 1 [id number] 11/29/2022 11/29/2022 ALPRAZolam 60.0 30 1 MG NA Benjamin Garcia Md [id number] [place], [place] NA 0 [place] 1 [id number] 11/01/2022 11/01/2022 ALPRAZolam 60.0 30 1 MG NA Benjamin Garcia Md [id number] [place], [place] NA 0 [place] 1 [id number] 10/18/2022 10/17/2022 ALPRAZolam 30.0 15 1 MG Benjamin Morris Md [id number] Problems Problem Type SNOMED Code ICD Code Onset Dates Problem Status W/U Status Risk Notes Problem Generalized anxiety disorder (83427575) Anxiety, generalized (F41.1) Active confirmed Problem Opioid use disorder (2907402896) Opioid use disorder (F11.99) Active confirmed Problem Dyssomnia (19110957) Sleep disturbances (G47.9) Active confirmed Plan Of Treatment No Information Insurance Providers Payer Name Payer Address Payer Phone Subscriber Number Group Number Insured Name Patient Relationship to Insured Coverage Start Date Coverage End Date R [address] [address] [place] [address] [id number] Nohemi Goodwin Self - patient is the insured 3 [facility] Attn Claims Department [address] [place] [address] [phone] [id number] Nohemi Goodwin Self - patient is the insured 8 3 MEDICAID [address] [place] [address] [id number] Nohemi Goodwin Self - patient is the insured 3 Medical (General) History Surgical History Surgery Date(Month/Year) Hospitalization History Reason Date(Month/Year) child
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
--- OUTSIDE RECORDS SUMMARY | 2024-12-28 13:33 | XMS_ITS | Clinical Summary ---
Author Organization [facility] Address [address] [place] [address] Care Team Providers Care Water Control Supervisor Name Role Phone Unavailable Primary Care Provider Unavailabl e Source Comments [facility],non-owned Affiliates and Associated Physician Practices is amultiple site organization consisting of ambulatory clinics and hospital sitesin [place], [place], [place] and [place]. This disclosure is being madepursuant to the Care Everywhere program and may not contain all information available regarding this patient. Last updated 18.[facility] [employer] Allergies Active Allergy Reactions Criticality Noted Date Comments Shellfish Allergy Other 05/14/2023 Patient reports hives and throat swelling Ketorolac Rash,Itching Low 06/14/2014 Tramadol Seizures High 09/27/2014 Medications * This document contains information received from the source organization and may not represent a complete record from that organization. * Be aware that medications may not be up to date on this document. Alwaysverify current medications with the patient. ALPRAZolam (XANAX) 0.25 MG tablet Take 0.25 mg by mouth 2 times daily as needed Reported on 11/22/2016 Active medroxyPROGEST ERone (DEPO-PROVERA) 150 MG/ML injection Inject 150 mg into muscle Every 90 days Active ferrous gluconate 324 (38 FE) MG tablet Take 1 Tab by mouth daily with breakfast 30 Tab 2 7 Active nitrofurantoin monohyd macro crystals (Macrobid) 100 MG capsule Take 1 (one) capsule by mouth every 12 hours 10 capsule 3 Active polyethylene glycol 3350 (Miralax) 17 GM/SCOOP powder Take 17 (seventeen) g by mouth once daily 238 g 3 Active acetaminophen (Tylenol) 500 MG tablet Take 1 (one) tablet by mouth every 4 hours as needed for Fever or Pain Maximum allowable Acetaminophen amount = 4 Grams (4000 mg) / 24 hours. 30 tablet 3 Active ondansetron, disintegrating , (Zofran ODT) 4 MG tablet Take 1 (one) tablet by mouth every 6 hours as needed for Nausea/Vomiting Allow tablet to dissolve on the tongue 10 tablet 3 Active Active Problems Problem Noted Date Diagnosed Date Abscess of arm, left 03/23/2015 Hepatitis C virus infection without hepatic coma 05/19/2014 Overview (05/28/2015): Generalized anxiety disorder 05/19/2014 Immunizations Immunization Administration Dates Next Due INFLUENZA VACCINE 05/28/2014 Family History Medical History Relation Name Comments Diabetes Father Relation Name Status Comments Father Social History Tobacco Use Types Packs/Day Years Used Date Smoking Tobacco: Never Smokeless Tobacco: Never Tobacco Cessation:Counseling Given: Not Answered Alcohol Use Standard Drinks/Week Comments Yes 0 (1 standard drink = 0.6 oz pur e alcohol) occ AUDIT-C Answer Date Recorded Q1: How often do you have a drink containing alcohol? Never 12/27/2022 Q2: How many drinks containi ng alcohol do you have on a typical day when you are drinking? Patient does not drink 3 Q3: How often do you have si x or more drinks on one occasion? Never 12/27/2022 Comments No Sex and Gender Information Value Date Recorded Sex Assigned at Not on file Legal Sex Female 10:26 AM CDT Gender Identity Not on file Sexual Orientation Not on file Last Filed Vital Signs Vital Sign Reading Time Taken Comments Blood Pressure 121/71 05/14/2023 7:00 PM CDT Pulse 82 05/14/2023 6:21 PM CDT Temperature 36.8 C (98.2 F) 05/14/2023 6:21 PM CDT Respiratory Rate 16 05/14/2023 6:21 PM CDT Oxygen Saturation 100% 05/14/2023 7:00 PM CDT Inhaled Oxygen Concentration 100% 04/04/2013 7 :08 AM CDT Weight 54.4 kg (120 lb) 05/14/2023 6:54 PM CDT Height 157.5 cm (5' 2 ) 05/14/2023 6:21 PM CDT Body Mass Index 21.95 05/14/2023 6:21 PM CDT Plan of Treatment Health Maintenance Due Date Last Done Comments PAP SMEAR 1994 DTAP/TDAP/TD VACCINES (1 - Tdap) 2013 HEPATITIS B VACCINE (1 of 3 - 19+ 3-dose series) 2013 COVID-19 VACCINE (2 - season) 2024 11/11/2021 DEPRESSION SCREENING 08/28/2024 INFLUENZA VACCINE (Season Ended) 2025 06/08/2022, 05/28/2022, 05/28/2021, Additional history exists ZOSTER VACCINE (1 of 2) 2044 HEPATITIS C SCREENING Completed 08/12/2021 , 08/12/2021, 03/05/2017, Additional history exists HIV SCREENING Completed 08/12/2021, 04/2017, 08/10/2015 HIB VACCINE Aged Out No longer eligi ble based on patient's age to complete this topic HPV VACCINE Aged Out No longer eligi ble based on patient's age to complete this topic MENINGOCOCCAL (Group B) VACCINE SHARED DECISION-MAKING Aged Out No longer eligible based on patient's age to complete this topic MENINGOCOCCAL GROUPS A/C/Y/W VACCINE Aged Out No longer eligible based on patient's age to complete this topic PNEUMOCOCCAL VACCINE Aged Out No long er eligible based on patient's age to complete this topic Procedures Procedure Name Priority Date/Time Associated Diagnosis Comments HEPATITIS C RNA QUANTITATIVE Routine 03/05/2017 9:14 AM CDT Opioid overdose, undetermined intent, initial encounter Acute encephalopathy IVDU (intravenous drug user) Chronic hepatitis C without hepatic coma HIV-1 HIV-2 ANTIBODY + HIV P24 AG PANEL Routine 03/05/2017 9:14 AM CDT Opioid overdose, undetermined intent, initial encounter Acute encephalopathy IVDU (intravenous drug user) Chronic hepatitis C without hepatic coma from Last 3 Months or Most Recently Relevant to Health Maintenance Results * HIV-1 HIV-2 ANTIBODY + HIV P24 AG PANEL (03/05/2017 9:14 AM CDT) Pathologist [facility] HIV1/2 Ab + P24 Ag Negative Negative 03/05/2017 9:58 AM CDT [facility] Blood BLOOD SPECIMEN / Unknown Lab Venipuncture / Unknown 03/05/2017 9:14 AM CDT 03/05/2017 9:18 AM CDT us Johan Engel MD LAB - CHEMISTRY ORDERABLES Final Result [facility] [address] * (ABNORMAL) HEPATITIS C RNA QUANTITATIVE PCR (03/05/2017 9:14 AM CDT) [facility] Hepatitis C Virus RNA Log Quantitative 5.6 log IU 03/07/2017 8:13 AM [facility] ([facility]) Comment: INTERPRETIVE INFORMATION: Hepatitis C Virus by Quantitative PCR The quantitative range of this assay is 1.2 - 8.0 log IU/mL (15- 100,000,000 IU/mL). Limit of detection (LOD): 15 IU/mL (1.2 log IU/mL) LOD values do not apply to diluted specimens. An interpretation of Not Detected does not rule out the presence of PCR inhibitors in the patient specimen or hepatitis C virus RNA concentrations below the level of detection of the test. Care should be taken when interpreting any single viral load determination. This test should not be used for blood donor screening, associated re-entry protocols, or for screening Human Cell, Tissues and Cellular Tissue-Based Products (HCT/P). Hepatitis C Virus RNA Quantitative 400,000 IU/mL 03/07/2017 8:13 AM [facility] ([facility]) Interpretation Hepatitis C RNA Quantitative Detected (A) Not Detected 03/07/2017 8:13 AM [facility] ([facility]) EER HCV See Note 03/07/2017 8:13 AM [facility] ([facility]) Comment: Access [facility] Enhanced Report using either link below: -Direct access: [email or web address] -Enter Username, Password: [email or web address] Username: [email or web address] Password: [email or web address] Performed by [facility], [address] [place] [address] [email or web address], Nikolai Dill MD, Lab. Director Blood BLOOD SPECIMEN / Unknown Lab Venipuncture / Unknown 03/05/2017 9:14 AM CDT 03/05/2017 9:17 AM CDT Johan Engel MD LAB - CHEMISTRY ORDERABLES Final Result [facility] ([facility]) [address] from Last 3 Months or Most Recently Relevant to Health Maintenance Additional Health Concerns Infection Onset Date Last Indicated MRSA 03/25/2015 03/25/2015 Insurance [facility] [place] [facility] THIRD REPUBLICAN LIABILITY THIRD REPUBLICAN LIABILITY Advance Directives * Full Code (Latest Code Status on File) Date Activated Date Inactivated Comments 03/04/2017 8:37 PM 03/05/2017 11:51 AM * Full Code Date Activated Date Inactivated Comments 09/11/2015 5:54 PM 09/12/2015 1:23 PM * Full Code Date Activated Date Inactivated Comments 06/28/2015 4:47 AM 06/29/2015 8:11 PM
--- OUTSIDE RECORDS SUMMARY | 2024-12-28 13:33 | XMS_ITS | Clinical Summary ---
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 Gender Identity Not on file Sexual Orientation Not on file Plan of Treatment Health Maintenance Due Date Last Done Comments Hepatitis C Virus (HCV) Screening 1994 TdaP Immunization 1994 Hepatitis B Immunization (1 of 3 - 19+ 3-dose series) 2013 Pap Smear 11/11/2015 Influenza Immunization (#1) 2024 05/17/2018 SARS-COV-2 Immunization ( season) 2024 Respiratory Syncytial Virus (RSV) Immunization (Adult) (1 - 1-dose 75+ series) 2069 Meningococcal Immunization (ACWY) Aged Out No longer eligible based on patient's age to complete this topic Pneumococcal Immunization Combined Aged Out No longer eligible based on patient's age to complete this topic Rotavirus Immunization Aged Out No lo nger eligible based on patient's age to complete this topic
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
== END 2024-12-27 12:51 | disposition home or self-care (01) ==
LOC: ANHIMG 12:52
PROVIDERS: Visit Provider Obstetrics & Gynecology
DX: R92.8 Other abnormal and inconclusive findings on diagnostic imaging of breast (principal)
CPT/HCPCS: 76642